=== PATIENT | female | born 1965 | race Caucasian/White ===

== ENCOUNTER 2017-11-02 22:01 | Emergency (ER) | payer OTHER ==
[2017-11-02 22:30] VITALS: O2SAT 96
--- NOTE | 2017-11-02 22:42 | ERPHSYRPT ---
- History of Present Illness Time Seen by Provider: 11/02/17 22:30 Source: patient Exam Limitations: no limitations Patient Subjective Stated Complaint: headache today.. states in the back of her head. denies injury. 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 denies injury.. states vomiting x 30 minutes.. has had a hx of headaches in the past. neuro intact. Physician History: AT 3 AM TODAY PT STARTED WITH A SEVERE LEFT SIDED OCCIPITAL HEADACHE WITH VOMITING X2 AND DIAPHORESIS. PT ALSO C/O A CHRONIC COUGH FROM COPD/CHRONIC BRONCHITIS. PT DENIES FEVER, CHEST PAIN, SHORTNESS OF AIR, ABDOMINAL PAIN. Allergies/Adverse Reactions: No Known Drug Allergies Allergy (Verified 11/02/17 23:10) Home Medications: Canagliflozin/Metformin HCl [Invokamet 150-1,000 mg Tablet] 1 each PO DAILY 12/19 [History] Cetirizine HCl [Zyrtec] 10 mg PO DAILY 11/02/17 [History] Escitalopram Oxalate [Lexapro] 20 mg PO DAILY 11/02/17 [History] Hydrochlorothiazide 25 mg PO DAILY 11/02/17 [History] Lisinopril 5 mg [Zestril 5 MG] 5 mg PO DAILY 11/02/17 [History] Hx Influenza Vaccination/Date Given: No Hx Pneumococcal Vaccination/Date Given: No Immunizations Up to Date: (unknown) - Review of Systems Constitutional: No Fever Respiratory: No Dyspnea Cardiac: No Chest Pain Abdominal/Gastrointestinal: Vomiting, No Abdominal Pain Neurological: Headache Endocrine: Excessive Sweating All Other Systems: Reviewed and Negative - Past Medical History Pertinent Past Medical History: Yes Neurological History: Migraines Cardiac History: Hypertension Respiratory History: COPD Endocrine Medical History: Diabetes Type II Musculoskeletal History: Other History: Other Other Medical History: TYPE II NIDDM X 6 MOS, PSORIASIS - Past Surgical History Past Surgical History: Yes Genitourinary: Other Female Surgical History: Hysterectomy, Other Other Surgical History: lithotripsy - Social History Smoking Status: Never smoker Exposure to second hand smoke: No Drug Use: none Patient Lives Alone: No - Female History Hx Now: No - Nursing Vital Signs Nursing Vital Signs: Initial Vital Signs Temperature 97.7 F 11/02/17 22:19 Pulse Rate 66 11/02/17 22:19 Respiratory Rate 20 01/02/18 22:19 Blood Pressure 128/68 11/02/17 22:19 O2 Sat by Pulse Oximetry 96 11/02/17 22:19 Pain Scale Pain Intensity 9 - Physical Exam General Appearance: alert Eye Exam: PERRL/EOMI Ears, Nose, Throat Exam: TMs normal, moist mucous membranes, pharyngeal erythema Neck Exam: normal inspection Respiratory Exam: No crackles/rales Cardiovascular Exam: normal heart sounds Gastrointestinal/Abdomen Exam: soft, normal bowel sounds Back Exam: normal range of motion Extremity Exam: normal range of motion Neurologic Exam: alert, cooperative, sensation nml, No motor deficits Skin Exam: warm, dry SpO2 Interpretation: normal SpO2: 96 Oxygen Delivery: Room Air - Course Nursing assessment & vital signs reviewed: Yes - CT Exams Head CT Interpretation: Tele-radiologist Report (NO GROSS OBVIOUS ACUTE INTRACRANIAL ABNORMALITY IN THE VISUALIZED NON-DEGRADED UPPER PORTIONS OF THE BRAIN PARENCHYMA.) Ordered Tests: Active Orders 24 hr Category Date Time Status HEAD WITHOUT CONTRAST [CT] Stat Exams 11/02/17 22:37 Taken AMYLASE Stat Lab 11/02/17 22:54 Completed CBC W DIFF Stat Lab 11/02/17 22:54 Completed CMP Stat Lab 11/02/17 22:54 Completed CULTURE, THROAT Stat Lab 11/02/17 22:54 Received CULTURE,URINE Stat Lab 11/02/17 22:54 Received LIPASE Stat Lab 11/02/17 22:54 Completed MAG [MAGNESIUM] Stat Lab 11/02/17 22:54 Completed [place] Screen Stat Lab 11/02/17 22:54 Completed STREP SCREEN-BETA A Stat Lab 11/02/17 22:54 Completed UA W/ MICROSCOPIC Stat Lab 11/02/17 22:54 Completed Lab/Rad Data: Laboratory Result Diagrams 11/02/17 22:54 11/02/17 22:54 Laboratory Results 11/02/17 11/02/17 11/02/17 Range/Units 22:54 22:54 22:54 WBC (4.0-10.5) K/mm3 RBC (4.1-5.4) M/mm3 Hgb (12.0-16.0) gm/dl Hct (35-47) % MCV (78-100) fl MCH (26-32) pg MCHC (32-36) g/dl RDW (11.5-14.0) % Plt Count (150-450) K/mm3 MPV (6-9.5) fl Gran % (36.0-66.0) % Lymphocytes % (24.0-44.0) % Monocytes % (0.0-12.0) % Eosinophils % (0.00-5.0) % Basophils % (0.0-0.4) % Basophils # (0-0.4) Sodium 140 (136-145) mEq/L Potassium 3.3 L (3.5-5.1) mEq/L Chloride 105 (98-107) mEq/L Carbon Dioxide 21.4 (21-32) mEq/L Anion Gap 16.5 H (5-15) MEQ/L BUN 15 (9-20) mg/dL Creatinine 0.86 (0.55-1.30) mg/dl Estimated GFR > 60 ML/MIN Glucose 156 H (70-110) MG/DL Calcium 8.9 (8.5-10.1) mg/dL Magnesium 1.7 L (1.8-2.4) mg/dL Total Bilirubin 0.20 (0.2-1.0) mg/dL AST 21 (15-37) U/L ALT 22 (12-78) U/L Alkaline Phosphatase 133 H (46-116) U/L Serum Total Protein 7.4 (6.4-8.2) gm/dL Albumin 3.2 L (3.4-5.0) g/dL Amylase 20 L (25-115) U/L Lipase 86 (73-393) U/L Ur Collection Type Urine Color (YELLOW) Urine Appearance (CLEAR) Urine pH (5-6) Ur Specific [place] (1.005-1.025) Urine Protein (Negative) Urine Ketones (NEGATIVE) Urine Blood (0-5) Geronimo/ul Urine Nitrite (NEGATIVE) Urine Bilirubin (NEGATIVE) Urine Urobilinogen (0-1) mg/dL Ur Leukocyte Esterase (NEGATIVE) Urine Microscopic RBC (0-2) /HPF Urine Microscopic WBC (0-5) /HPF Ur Epithelial Cells (FEW) /HPF Urine Bacteria (NEGATIVE) /HPF Urine Mucus (NEGATIVE) /HPF Urine Yeast (NEGATIVE) /HPF Urine Culture Reflexed (NO) Urine Glucose (NEGATIVE) mg/dL Monoscreen NEGATIVE (Negative) Influenza Type A Ag NEGATIVE (NEGATIVE) Influenza Type B Ag NEGATIVE (NEGATIVE) RSV (PCR) NEGATIVE (Negative) Streptococcus Screen (Negative) Specimen Received 11/02/17 11/02/17 11/02/17 Range/Units 22:54 22:54 22:54 WBC 14.5 H (4.0-10.5) K/mm3 RBC 5.61 H (4.1-5.4) M/mm3 Hgb 15.2 (12.0-16.0) gm/dl Hct 47.7 H (35-47) % MCV 85.0 (78-100) fl MCH 27.0 (26-32) pg MCHC 31.9 L (32-36) g/dl RDW 14.7 H (11.5-14.0) % Plt Count 373 (150-450) K/mm3 MPV 10.6 H (6-9.5) fl Gran % 70.2 H (36.0-66.0) % Lymphocytes % 15.7 L (24.0-44.0) % Monocytes % 8.7 (0.0-12.0) % Eosinophils % 5.0 (0.00-5.0) % Basophils % 0.4 (0.0-0.4) % Basophils # 0.06 (0-0.4) Sodium (136-145) mEq/L Potassium (3.5-5.1) mEq/L Chloride (98-107) mEq/L Carbon Dioxide (21-32) mEq/L Anion Gap (5-15) MEQ/L BUN (9-20) mg/dL Creatinine (0.55-1.30) mg/dl Estimated GFR ML/MIN Glucose (70-110) MG/DL Calcium (8.5-10.1) mg/dL Magnesium (1.8-2.4) mg/dL Total Bilirubin (0.2-1.0) mg/dL AST (15-37) U/L ALT (12-78) U/L Alkaline Phosphatase (46-116) U/L Serum Total Protein (6.4-8.2) gm/dL Albumin (3.4-5.0) g/dL Amylase (25-115) U/L Lipase (73-393) U/L Ur Collection Type VOID Urine Color YELLOW (YELLOW) Urine Appearance SLIGHTLY CLOUDY (CLEAR) Urine pH 0 (5-6) Ur Specific [place] 1.015 (1.005-1.025) Urine Protein 1000 (Negative) Urine Ketones NEGATIVE (NEGATIVE) Urine Blood 50 (0-5) Geronimo/ul Urine Nitrite NEGATIVE (NEGATIVE) Urine Bilirubin NEGATIVE (NEGATIVE) Urine Urobilinogen NORMAL (0-1) mg/dL Ur Leukocyte Esterase NEGATIVE (NEGATIVE) Urine Microscopic RBC 2-5 (0-2) /HPF Urine Microscopic WBC 0-2 (0-5) /HPF Ur Epithelial Cells MODERATE (FEW) /HPF Urine Bacteria MODERATE (NEGATIVE) /HPF Urine Mucus SLIGHT (NEGATIVE) /HPF Urine Yeast FEW (NEGATIVE) /HPF Urine Culture Reflexed YES (NO) Urine Glucose NEGATIVE (NEGATIVE) mg/dL Monoscreen (Negative) Influenza Type A Ag (NEGATIVE) Influenza Type B Ag (NEGATIVE) RSV (PCR) (Negative) Streptococcus Screen NEGATIVE (Negative) Specimen Received 11/02/17 2250 - Departure Time of Disposition: 00:08 Departure Disposition: Home Clinical Impression: HEADACHE, PHARYNGITIS, VOMITING Condition: Stable Critical Care Time: No Referrals: ILYA ERWIN [Primary Care Provider] - Instructions: Headache Additional Instructions: FOLLOW UP WITH PRIVATE DOCTOR TOMORROW. Prescriptions: Promethazine HCl 25 mg [Phenergan 25 mg] 25 mg PO Q4H PRN PRN #14 tablet PRN Reason: Nausea/Vomiting Azithromycin 250 mg [Zithromax 250 MG TABLET] 250 mg PO ZPACK #6 tablet
[2017-11-02 23:04] LABS: BASOPHIL % 0.4 % (0.0-0.4); Basophil (Absolute #) 0.06 (0-0.4); Eosinophil (Absolute #) 0.72 (0-0.5); Granulocyte Absolute (ANC) 10.16 (1.4-6.9); Granulocytes % 70.2 % (36.0-66.0); Hematocrit 47.7 % (35-47); Hemoglobin 15.2 gm/dl (12.0-16.0); Lymphocyte (Absolute #) 2.27 (1.0-4.6); Lymphocytes % 15.7 % (24.0-44.0); Mean Corpuscular Hgb Concent. 31.9 g/dl (32-36); Mean Platelet Volume 10.6 fl (6-9.5); Monocyte (Absolute #) 1.26 (0.0-1.3); Monocytes % 8.7 % (0.0-12.0); Platelet Count 373 K/mm3 (150-450); Red Blood Count 5.61 M/mm3 (4.1-5.4); Red Cell Distribution Width 14.7 % (11.5-14.0); White Blood Count 14.5 K/mm3 (4.0-10.5)
[2017-11-02 23:19] LABS: Appearance SLIGHTLY CLOUDY (CLEAR); Bilirubin NEGATIVE (NEGATIVE); Blood 50 Ery/ul (0-5); Glucose NEGATIVE (NEGATIVE); Ketones NEGATIVE (NEGATIVE); Leukocyte Esterase NEGATIVE (NEGATIVE); Nitrite NEGATIVE (NEGATIVE); Ph 0 (5-6); Protein,Urine Dip 1000 (Negative); Specific Gravity 1.015 (1.005-1.025); Urobilinogen NORMAL mg/dL (0-1)
[2017-11-02 23:20] LABS: Bacteria MODERATE /HPF (NEGATIVE); Epithelial Cells MODERATE /HPF (FEW); Mucus SLIGHT /HPF (NEGATIVE); WBC 0-2 /HPF (0-5); Yeast FEW /HPF (NEGATIVE)
[2017-11-02 23:21] LABS: ALBUMIN 3.2 g/dL (3.4-5.0); ALKALINE PHOSPHATASE 133 U/L (46-116); AMYLASE 20 U/L (25-115); ANION GAP 16.5 MEQ/L (5-15); BLOOD UREA NITROGEN 15 mg/dL (9-20); CHLORIDE 105 mEq/L (98-107); Calcium 8.9 mg/dL (8.5-10.1); Carbon Dioxide 21.4 mEq/L (21-32); Creatinine 1 0.86 mg/dl (0.55-1.30); EST GLOMERULAR FILTRATION RATE > 60 ML/MIN; Glucose 156 MG/DL (70-110); LIPASE 86 U/L (73-393); MAGNESIUM 1.7 mg/dL (1.8-2.4); Potassium 3.3 mEq/L (3.5-5.1); SGOT/AST 21 U/L (15-37); SGPT/ALT 22 U/L (12-78); SODIUM 140 mEq/L (136-145); Total Protein 7.4 gm/dL (6.4-8.2)
[2017-11-03] MEDS ORDERED: Klor Con 10 MEQ PO ONE ×3 (00:01→00:15)
[2017-11-03 00:02] LABS: INFLUENZA A NEGATIVE (NEGATIVE); INFLUENZA B NEGATIVE (NEGATIVE); RESPIRATORY SYNCTIAL VIRUS NEGATIVE (Negative)
[2017-11-03] MEDS ORDERED: Rocephin 1000 MG INJ IM ONE (00:03)
[2017-11-03] MEDS ORDERED: TORAdol 30 mg Injection IM ONE (00:03)
[2017-11-03] MEDS ORDERED: TORAdol 30 mg Injection ONE (00:08)
[2017-11-03] MEDS ORDERED: Rocephin 1000 MG INJ ONE (00:08)
[2017-11-03] MEDS ORDERED: MAG-OX 400 ONE (00:08)
[2017-11-03 00:38] VITALS: BP 120/69; PULSE 68
--- NOTE | 2017-11-03 08:36 | XRAY ---
Indication: Left occipital headache. No known injury. Multiple contiguous axial images obtained through the head without contrast. Comparison: May 30, 2007. Again normal appearing brain parenchyma, ventricles, and bony calvarium. Visualized paranasal sinuses and mastoid air cells are clear. Impression: Stable normal CT head without contrast exam. Comment: Preliminary interpretation was made by [facility]. No critical discrepancy. CT DI 67.22
[2017-11-03] MEDS ORDERED: MAG-OX 400 PO SCH (10:00)
== END 2017-11-03 00:44 | disposition home or self-care (01) ==
LOC: ED 22:01
DX: R51 Headache (principal); J02.9 Acute pharyngitis, unspecified; R11.11 Vomiting without nausea; I10 Essential (primary) hypertension; J44.9 Chronic obstructive pulmonary disease, unspecified; E11.9 Type 2 diabetes mellitus without complications; Z79.4 Long term (current) use of insulin; L40.9 Psoriasis, unspecified; Z79.899 Other long term (current) drug therapy
CPT/HCPCS: 36415; 70450; 80053; 81000; 82150; 82962; 83690; 83735; 85025; 86308; 87070; 87086; 87430; 87631; 99284; J0696; J1885; A9270-GY

== ENCOUNTER 2018-04-10 13:57 | Emergency (ER) | payer SELFPAY ==
--- NOTE | 2018-04-10 14:30 | ERPHSYRPT ---
- History of Present Illness Time Seen by Provider: 04/10/18 14:27 Source: patient Exam Limitations: no limitations Patient Subjective Stated Complaint: pain to left hip beginning today. denies any injury. Triage Nursing Assessment: to room per w/c. assisted to bed per staff. is able to bear weight using a walker. walked around end of cot with walker. no deformities noted. Physician History: pain to left hip beginning today. denies any injury. Method of Injury: unknown Occurred: this morning Quality: constant Severity of Pain-Max: moderate Severity of Pain-Current: moderate Lower Extremities Pain: hip: left Allergies/Adverse Reactions: No Known Drug Allergies Allergy (Verified 04/10/18 14:06) Home Medications: Canagliflozin/Metformin HCl [Invokamet 150-1,000 mg Tablet] 1 each PO DAILY 12/19 [History] Cetirizine HCl [Zyrtec] 10 mg PO DAILY 11/02/17 [History] Escitalopram Oxalate [Lexapro] 20 mg PO DAILY 11/02/17 [History] Lisinopril 5 mg [Zestril 5 MG] 5 mg PO DAILY 11/02/17 [History] hydroCHLOROthiazide [Hydrochlorothiazide] 25 mg PO DAILY 11/02/17 [History] Cephalexin Mh 500 mg [Keflex 500 mg] 500 mg PO QID 04/10/18 [History] Hx Tetanus, Diphtheria Vaccination/Date Given: No Hx Influenza Vaccination/Date Given: Yes Hx Pneumococcal Vaccination/Date Given: No - Review of Systems Constitutional: No Symptoms Eyes: No Symptoms Ears, Nose, & Throat: No Symptoms Respiratory: No Symptoms Cardiac: No Symptoms Abdominal/Gastrointestinal: No Symptoms Genitourinary Symptoms: No Symptoms Musculoskeletal: Joint Pain (left hip), No Deformity, No Fall Neurological: No Symptoms Psychological: No Symptoms Endocrine: No Symptoms - Past Medical History Pertinent Past Medical History: Yes Neurological History: Migraines Cardiac History: Hypertension Respiratory History: COPD Endocrine Medical History: Diabetes Type II Musculoskeletal History: Other History: Other Other Medical History: TYPE II NIDDM X 6 MOS, PSORIASIS - Past Surgical History Past Surgical History: Yes Genitourinary: Other Female Surgical History: Hysterectomy, Dilation & Curettage, Tubal Ligation Other Surgical History: kidney stones with stent placement - Social History Smoking Status: Never smoker Exposure to second hand smoke: No Drug Use: none Patient Lives Alone: No - Female History Hx Now: No - Nursing Vital Signs Nursing Vital Signs: Initial Vital Signs Respiratory Rate 16 04/10/18 14:00 Pain Scale Pain Intensity 3 - Physical Exam General Appearance: no apparent distress Eyes, Ears, Nose, Throat Exam: normal ENT inspection Neck Exam: normal inspection Cardiovascular/Respiratory Exam: chest non-tender Gastrointestinal/Abdominal Exam: non-tender Back Exam: decreased range of motion, muscle spasm Hips Exam: left: limited range of motion, soft tissue tenderness Legs Exam: bilateral leg: non-tender Knees Exam: bilateral knee: non-tender Ankle Exam: bilateral ankle: non-tender Foot Exam: bilateral foot: non-tender DTR - Lower Extremities Exam: knee (R): 3+, knee (L): 3+, ankle (R): 3+, ankle ( L): 3+ Neuro/Tendon Exam: normal sensation Mental Status Exam: alert, oriented x 3 Skin Exam: normal color SpO2 Interpretation: normal Oxygen Delivery: Room Air - Course Nursing assessment & vital signs reviewed: Yes - Radiology Exams Hip X-ray Interpretation: Reviewed by me Ordered Tests: Active Orders 24 hr Category Date Time Status HIP UNI (2V) INCL PEL IF DONE Stat Exams 04/10/18 14:27 Taken Medication Summary Discontinued Medications Generic Name Dose Route Start Last Admin Trade Name Bar PRN Reason Stop Dose Admin Ketorolac Tromethamine 60 mg 04/10/18 15:03 04/10/18 15:06 Toradol 30 Mg Injection IM 04/10/18 15:04 60 mg STAT ONE Administration Ketorolac Tromethamine Confirm 04/10/18 15:05 Toradol 30 Mg Injection Administered 04/10/18 15:06 Dose 60 mg .ROUTE .STK-MED ONE - Progress Progress: improved, pain not gone completely Counseled pt/family regarding: diagnosis, need for follow-up, rad results - Departure Time of Disposition: 15:19 Departure Disposition: Home Clinical Impression: Hip pain, left Condition: Stable Critical Care Time: No Referrals: ILYA ERWIN [Primary Care Provider] - Instructions: Contusion (DC) Additional Instructions: SPRAINS/STRAINS/CONTUSIONS 1. Rest the affected area as much as possible for the next few days. 2. Apply ice to the affected area for 20-30 minutes at a time, several times a day. 3. If you receive an elastic wrap, wear it only while awake for comfort and support. Re-wrap the elastic wrap if it feels too tight or too loose. 4. If swelling is present, elevate the affected part above the level of the heart for at least 2 to 3 days. 5. Use splints, slings, or crutches as instructed. 6. Watch for severe swelling, coldness, numbness, and discoloration of the fingers and toes. See your family physician or return to the emergency department if any of these are noted. AMANDAJAGRUTI LOUIS was seen on 04/10/18 n the Emergency Room. At that time you were treated for an emergent condition, during your visit Laboratory, Radiology and/or other procedures may have been ordered. It is very important that you follow-up with your Primary Care Physician ILYA ERWIN within the next 24-48 hours to review your Emergency Room visit and the final results of testing that was ordered. Some test results such as Urine Cultures, Blood Cultures, and other cultures if ordered will not be finalized for 24-48 hours. If you do not have a Primary Care Provider please call the medical records department at [phone] to obtain a copy of your results or you may sign into our patient portal to obtain these results by visiting us @ [email or web address] and completing the following steps: 1. Click on the Patient Portal link 2. Click the Patient Self Enrollment Link to complete the enrollment form and entering your 3. Once the enrollment form is completed you will receive an email with a temporary ID and password at the email address you provided. 4. Next choose a user name and password. Your user name must be at least 4 characters long and your password must be at least 4 characters long. 5. Choose a security question from the list and provide your answer to the question. If you already have signed into the Health Portal you may access your Health Care Information 24/05 by the following steps: 1. Login to our website @ [email or web address] 2. Enter your original user name and password. FAQS The [facility] Health Portal is an online tool that contains your Lab Results, Radiology Reports, Visit History, Discharge Instructions and Health Summary Lab and Radiology Results will not be available for 72 hours on the portal. The Portal is a secure site, passwords are encryted and URLs are re-written so they cannot be copied and pasted. You and authorized family members are the only ones who can access your Portal. Also there is a timeout feature that protects your information if you leave the Portal page open. If you have technical difficulty please use the Contact Us link on the page this will allow you to submit any questions you have regarding the Portal or you may contact the Medical Record Department at [phone]. Prescriptions: Naproxen 500 mg [Naprosyn 500 MG] 500 mg PO BIDAC #30 tablet Orphenadrine Citrate 100 mg [Norflex 100 MG Tablet] 100 mg PO BID #20 tab
[2018-04-10] MEDS ORDERED: TORAdol 30 mg Injection IM ONE (15:03)
[2018-04-10] MEDS ORDERED: TORAdol 30 mg Injection ONE (15:05)
[2018-04-10 15:13] VITALS: BP 128/86; PULSE 92; O2SAT 97
--- NOTE | 2018-04-10 17:09 | XRAY ---
Indication: Left hip pain. No known injury. Comparison: None AP pelvis and 2 views of the left hip demonstrates moderate bilateral lumbosacral junction degenerative facet arthropathy and last lumbar segment spina bifida defect versus laminectomy. No other bony, articular, or soft tissue abnormalities. Comment: Preliminary interpretation was made by [facility]. No discrepancy.
== END 2018-04-10 15:45 | disposition home or self-care (01) ==
LOC: ED 13:57
DX: M25.552 Pain in left hip (principal); Z79.899 Other long term (current) drug therapy
CPT/HCPCS: 73502; 96372; 99284; J1885

== ENCOUNTER 2018-11-07 08:32 | Emergency (ER) | payer BC ==
--- NOTE | 2018-11-07 09:10 | ERPHSYRPT ---
- History of Present Illness Time Seen by Provider: 11/07/18 08:57 Source: patient Exam Limitations: no limitations Patient Subjective Stated Complaint: Pt states "I have pneumonia. It all started on 10/21/2018. I went to [facility] and they gave me augmentin, and it did not touch it. I went to [facility] this morning and they sent me straight over here." Triage Nursing Assessment: Pt alert and oriented X 3, skin pwd. Pt ambulates slowly with breaks. Pt tachypneic. Pt able to speak in clear full sentences. pt has +2 pitting edema noted bilat lower legs. Pt has rhonchi noted lower right lung field and wheezes noted on upper left lungs. Physician History: The patient is a 53-year-old female with her daughter complaining that she was developing shortness of breath on 10/21/18. She saw Madelin [facility] at [facility] on 10/23/18 and was given Augmentin. The Augmentin has not helped. On 11/03/18 she had a chest x-ray and was told she had pneumonia. She was given lasix 20 mg daily for 5 days for swelling. She has also been taking Lasix for a 19 pound weightweight gain. She has now been urinating frequently and has lost some weight. She has shortness of breath and cannot sleep lying flat in bed. She says she is unable to sleep even in a recliner. She must sit in a chair straight up in order to breathe at night. She has a cough and wheezing. She denies fever or chills. She was seen at [facility] this morning and was sent to ER. Her past medical history is significant for psoriasis, DPM, HTN, CHF, kidney stones, tubal ligation, and hysterectomy. Timing/Duration: week(s) (3), gradual onset, worse Activities at Onset: none Severity of Dyspnea-Max: moderate Severity of Dyspnea-Current: moderate Possible Cause: no prior episodes Modifying Factors: Improves With: coughing, exertion, lying down Associated Symptoms: anxiety, cough, edema, wheezing Allergies/Adverse Reactions: No Known Drug Allergies Allergy (Verified 04/10/18 14:06) Home Medications: hydroCHLOROthiazide [Hydrochlorothiazide] 25 mg PO DAILY 11/02/17 [History] Benzonatate 100 mg [Tessalon Perles 100 MG] 100 mg PO DAILY 11/07/18 [ History] Furosemide 20 mg [Lasix 20 mg] 20 mg PO DAILY 11/07/18 [History] Metformin HCl Xr 500 mg [Glucophage XR 500 MG] 1,000 mg PO DAILY 11/07/18 [History] Methotrexate Sodium 2.5 mg [Trexall 2.5 mg] 15 mg PO DAILY 11/07/18 [ History] Potassium Chloride [Klor-Con M20] 20 meq PO DAILY 11/07/18 [History] Tizanidine HCl 4 mg PO HS 11/07/18 [History] Hx Tetanus, Diphtheria Vaccination/Date Given: No Hx Influenza Vaccination/Date Given: Yes Hx Pneumococcal Vaccination/Date Given: No Immunizations Up to Date: Yes - Review of Systems Constitutional: No Fever, No Chills Eyes: No Symptoms Ears, Nose, & Throat: No Symptoms Respiratory: Cough, Dyspnea, Dyspnea on Exertion (ROBIN), Wheezing Cardiac: Edema Abdominal/Gastrointestinal: No Abdominal Pain, No Nausea, No Vomiting, No Diarrhea Genitourinary Symptoms: No Dysuria Musculoskeletal: No Back Pain, No Neck Pain Skin: No Rash Neurological: No Dizziness, No Focal Weakness, No Sensory Changes Psychological: No Symptoms Endocrine: No Symptoms Hematologic/Lymphatic: No Symptoms Immunological/Allergic: No Symptoms All Other Systems: Reviewed and Negative - Past Medical History Pertinent Past Medical History: Yes Neurological History: Migraines Cardiac History: Hypertension Respiratory History: COPD Endocrine Medical History: Diabetes Type II Musculoskeletal History: Other History: Other Other Medical History: TYPE II NIDDM X 6 MOS, PSORIASIS - Past Surgical History Past Surgical History: Yes Genitourinary: Other Female Surgical History: Hysterectomy, Dilation & Curettage, Tubal Ligation Other Surgical History: kidney stones with stent placement - Social History Smoking Status: Former smoker Exposure to second hand smoke: No Drug Use: none Patient Lives Alone: No - Female History Hx Last Menstrual Period: hysterectomy Hx Now: No - Nursing Vital Signs Nursing Vital Signs: Initial Vital Signs Temperature 99.2 F 11/07/18 08:32 Pulse Rate 108 H 11/07/18 08:32 Respiratory Rate 28 H 11/07/18 08:32 Blood Pressure 147/85 11/07/18 08:32 O2 Sat by Pulse Oximetry 91 L 11/07/18 08:32 Pain Scale Pain Intensity 7 - Physical Exam General Appearance: moderate distress, obese Eye Exam: PERRL/EOMI Ears, Nose, Throat Exam: hearing grossly normal, normal ENT inspection Neck Exam: normal inspection, supple Respiratory Exam: rhonchi, wheezing Cardiovascular/Chest Exam: normal heart sounds, tachycardia Abdominal/Gastrointestinal Exam: soft, No tenderness, No distention, No mass Rectal Exam: not done Extremity Exam: non-tender, normal range of motion, normal inspection, no calf tenderness, pedal edema Neurologic Exam: alert, oriented x 3, cooperative, forestry biology specialist II-XII nml as tested, sensation nml, No motor deficits Skin Exam: normal color, warm, No dry SpO2 Interpretation: normal SpO2: 94 Oxygen Delivery: Room Air - Course EKG Interpreted by Me: RATE, Sinus Rhythm, NORMAL AXIS, NORMAL INTERVALS, NORMAL QRS, NORMAL ST-T, Other (no comp) - Radiology Exams Chest X-ray Interpretation: Reviewed by me, Teleradiologist Report (per Dr Lagunas), Infiltrates, Other (unchanged chest with cardiomegaly, left mid to lower lung infiltrate/atelecstasis.) - CT Exams Chest CT Interpretation: Tele-radiologist Report (per Dr Lagunas), No PE, Other (No central PE; cardiomegaly with very large pericardial effusion; small bibasilar effusionn; prominent mediastinal, left hilar, paraesophgeal, and bilateral axillary edenopathy; rule out primary versus metastatic malignancy.) Ordered Tests: Active Orders 24 hr Category Date Time Status Senior Property Manager STAT Care 11/07/18 09:15 Active EKG-ER Only STAT Care 11/07/18 09:14 Active IV Insertion STAT Care 11/07/18 09:14 Active Oxygen-ED Only NASAL CANNULA 2 lpm Care 11/07/18 09:14 Active CHEST 2 VIEWS (PA AND LAT) Stat Exams 11/07/18 09:15 Completed CHEST WITH CONTRAST [CT] Stat Exams 11/07/18 10:27 Completed ARTERIAL BLOOD GASES Stat Lab 11/07/18 09:47 Completed BLOOD CULTURE Stat Lab 11/07/18 09:30 Received CBC W DIFF Stat Lab 11/07/18 09:14 Completed CMP Stat Lab 11/07/18 09:30 Completed D-DIMER QUANTITATION Stat Lab 11/07/18 09:14 Completed Lactic Acid Stat Lab 11/07/18 09:47 Completed Manual Differential NC Stat Lab 11/07/18 09:14 Completed NT PRO BNP Stat Lab 11/07/18 09:30 Completed TROPONIN Q3H Lab 11/07/18 09:58 Completed TROPONIN Q3H Lab 11/07/18 12:14 Received TROPONIN Q3H Lab 11/07/18 15:15 Ordered TROPONIN Q3H Lab 11/07/18 18:15 Ordered TROPONIN Q3H Lab 11/07/18 21:15 Ordered Peak Expiratory Flow Rate ONCE RT 11/07/18 09:30 Completed Respiratory Nebulizer STAT RT 11/07/18 09:16 Completed Respiratory Therapy Assessment DAILY RT 11/07/18 09:30 Completed Medication Summary Discontinued Medications Generic Name Dose Route Start Last Admin Trade Name Freq PRN Reason Stop Dose Admin Albuterol/Ipratropium 3 ml 11/07/18 09:14 11/07/18 09:50 Duoneb 0.5-3 Mg/3 Ml Neb IH 11/07/18 09:15 3 ml STAT ONE Administration Albuterol/Ipratropium Confirm 11/07/18 09:26 Duoneb 0.5-3 Mg/3 Ml Neb Administered 11/07/18 09:27 Dose 3 ml IH .STK-MED ONE Lab/Rad Data: Laboratory Result Diagrams 11/07/18 09:14 11/07/18 09:30 Laboratory Results 11/07/18 11/07/18 11/07/18 Range/Units 09:58 09:58 09:47 WBC (4.0-10.5) K/mm3 RBC (4.1-5.4) M/mm3 Hgb (12.0-16.0) gm/dl Hct (35-47) % MCV (78-100) fl MCH (26-32) pg MCHC (32-36) g/dl RDW (11.5-14.0) % Plt Count (150-450) K/mm3 MPV (6-9.5) fl Segmented Neutrophils (36.0-66.0) % Band Neutrophils (0.0-2.0) % Lymphocytes (Manual) (24-44) % Monocytes (Manual) (0.0-12.0) % Eosinophils (Manual) (0.00-3.0) % Basophils (Manual) (0.0-1.0) % Toxic Granulation Platelet Estimate (NORMAL) RBC Morphology Anisocytosis D-Dimer (215-500) ng/mL Puncture Site RIGHT BRACHIAL pCO2 37 (35-45) mmHg pO2 83 (75-100) mmHg Base Excess 5.5 H (-2.0-2.0) O2 Saturation 93.8 L (94-100) g/dF ABG pH 7.50 H (7.35-7.45) ABG HCO3 28.9 H (22-28) ABG O2 Sat (Measured) 97.9 (95-100) % Hussein Test NOT APPLICABLE A-a Gradient 127 a/A Ratio 0.40 Hemoglobin 12.1 Carboxyhemoglobin 2.5 (0.0-6.9) % THgb Methemoglobin 1.7 H (1.4-1.5) % Temperature 37.0 C POC O2 Flow Rate 36 % Sodium (137-145) mmol/L Potassium 3.8 (3.5-5.1) mmol/L Chloride (98-107) mmol/L Carbon Dioxide (22-30) mmol/L Anion Gap (5-15) MEQ/L BUN (7-17) mg/dL Creatinine (0.52-1.04) mg/dL Estimated GFR ML/MIN Glucose (74-106) mg/dL Lactic Acid 0.7 (0.4-2.0) Calcium (8.4-10.2) mg/dL Total Bilirubin (0.2-1.3) mg/dL AST (14-36) U/L ALT (0-35) U/L Alkaline Phosphatase (38-126) U/L Troponin I < 0.012 (0.000-0.034) ng/mL NT-Pro-B Natriuret Pep (0-900) pg/mL Serum Total Protein (6.3-8.2) g/dL Albumin (3.5-5.0) g/dL Influenza Type A Ag NEGATIVE (NEGATIVE) Influenza Type B Ag NEGATIVE (NEGATIVE) RSV (PCR) NEGATIVE (Negative) 11/07/18 11/07/18 11/07/18 Range/Units 09:30 09:14 09:14 WBC 18.3 H (4.0-10.5) K/mm3 RBC 4.10 (4.1-5.4) M/mm3 Hgb 11.8 L (12.0-16.0) gm/dl Hct 37.1 (35-47) % MCV 90.5 (78-100) fl MCH 28.7 (26-32) pg MCHC 31.8 L (32-36) g/dl RDW 14.9 H (11.5-14.0) % Plt Count 595 H (150-450) K/mm3 MPV 10.2 H (6-9.5) fl Segmented Neutrophils 76 H (36.0-66.0) % Band Neutrophils 1 (0.0-2.0) % Lymphocytes (Manual) 16 L (24-44) % Monocytes (Manual) 5 (0.0-12.0) % Eosinophils (Manual) 1 (0.00-3.0) % Basophils (Manual) 1 (0.0-1.0) % Toxic Granulation 1+ Platelet Estimate INCREASED (NORMAL) RBC Morphology ABNORMAL Anisocytosis 1+ D-Dimer 4520 H* (215-500) ng/mL Puncture Site pCO2 (35-45) mmHg pO2 (75-100) mmHg Base Excess (-2.0-2.0) O2 Saturation (94-100) g/dF ABG pH (7.35-7.45) ABG HCO3 (22-28) ABG O2 Sat (Measured) (95-100) % Hussein Test A-a Gradient a/A Ratio Hemoglobin Carboxyhemoglobin (0.0-6.9) % THgb Methemoglobin (1.4-1.5) % Temperature C POC O2 Flow Rate % Sodium 138 (137-145) mmol/L Potassium 3.6 (3.5-5.1) mmol/L Chloride 100 (98-107) mmol/L Carbon Dioxide 31 H (22-30) mmol/L Anion Gap 11.7 (5-15) MEQ/L BUN 12 (7-17) mg/dL Creatinine 0.61 (0.52-1.04) mg/dL Estimated GFR > 60.0 ML/MIN Glucose 160 H (74-106) mg/dL Lactic Acid (0.4-2.0) Calcium 8.6 (8.4-10.2) mg/dL Total Bilirubin 0.60 (0.2-1.3) mg/dL AST 19 (14-36) U/L ALT 30 (0-35) U/L Alkaline Phosphatase 126 (38-126) U/L Troponin I (0.000-0.034) ng/mL NT-Pro-B Natriuret Pep 423 (0-900) pg/mL Serum Total Protein 7.1 (6.3-8.2) g/dL Albumin 3.6 (3.5-5.0) g/dL Influenza Type A Ag (NEGATIVE) Influenza Type B Ag (NEGATIVE) RSV (PCR) (Negative) - Progress Progress: unchanged Air Movement: good Progress Note: 11/07/18 12:41 I discussed the patient care and findings with Dr. Cueva. We discussed the possibility that she has metastatic cancer in the chest. We discussed the very large pericardial effusion. Dr. Cueva recommended she be transferred to [facility]. I discussed with the patient the findings. I told her she does not have pneumonia. I told her she does not have a PE. I did say that she has a very large pericardial effusion and we do not know the exact cause of it. I told her that we need to send her to [facility] for evaluation of the elevated d-dimer and of the large pericardial effusion. I did not discuss with the patient the possibility of cancer. 11/07/18 12:50 I discussed the patient in the findings from the CT scan with Dr. Finley at [facility]. He accepts the patient. He says that they have residential counselor and cardial thoracic surgery there today. Blood Culture(s) Obtained: No Antibiotics given: No Discussed with : Hammad Counseled pt/family regarding: diagnosis, rad results - Departure Time of Disposition: 12:51 Departure Disposition: Transfer (transfer to [facility] ER per DR Finley) Clinical Impression: Dyspnea, Pericardial effusion, Elevated d-dimer, Cardiomegaly, Adenopathy Condition: Stable Critical Care Time: No Referrals: ILYA ERWIN [ACTIVE STAFF] -
[2018-11-07] MEDS ORDERED: DUONEB 0.5-3 MG/3 ml Neb IH ONE ×2 (09:14→09:26)
--- NOTE | 2018-11-07 09:43 | XRAY ---
Indication: Short of breath. Comparison: November 03, 2018. PA/lateral chest unchanged again demonstrating cardiomegaly, left mid to lower lung infiltrate/atelectasis, and small bibasilar effusions. No new cardiopulmonary abnormalities.
[2018-11-07 09:52] LABS: A-aADO2 127; ABG HEMOGLOBIN 12.1; ABG POTASSIUM 3.8 (3.5-5.1); ARTERIAL BLD GAS O2 SATURATION 97.9 % (95-100); ARTERIAL BLOOD GAS BASE EXCESS 5.5 (-2.0-2.0); ARTERIAL BLOOD GAS FIO2 36 %; ARTERIAL BLOOD GAS PCO2 37 mmHg (35-45); ARTERIAL BLOOD GAS PO2 83 mmHg (75-100); CARBOXYHEMOGLOBIN 2.5 % THgb (0.0-6.9); HCO3- 28.9 (22-28); HGB O2 SAT 93.8 g/dF (94-100); Lactic Acid 0.7 (0.4-2.0); Methhemoglobin 1.7 % (1.4-1.5)
[2018-11-07 09:53] LABS: ABG SITE RIGHT BRACHIAL
[2018-11-07 09:54] LABS: Hematocrit 37.1 % (35-47); Hemoglobin 11.8 gm/dl (12.0-16.0); Mean Cell Volume 90.5 fl (78-100); Mean Corpuscular Hemoglobin 28.7 pg (26-32); Mean Corpuscular Hgb Concent. 31.8 g/dl (32-36); Mean Platelet Volume 10.2 fl (6-9.5); Platelet Count 595 K/mm3 (150-450); Red Cell Distribution Width 14.9 % (11.5-14.0); White Blood Count 18.3 K/mm3 (4.0-10.5)
[2018-11-07 10:14] LABS: ANISOCYTOSIS 1+; BAND 1 % (0.0-2.0); Basophil 1 % (0.0-1.0); Eosinophil 1 % (0.00-3.0); Lymphocytes 16 % (24-44); Monocyte 5 % (0.0-12.0); Neutrophils 76 % (36.0-66.0); Platelet Estimate INCREASED (NORMAL); Total Cells Counted 100; Toxic Granulation 1+
[2018-11-07 10:15] LABS: ALBUMIN 3.6 g/dL (3.5-5.0); ALKALINE PHOSPHATASE 126 U/L (38-126); ANION GAP 11.7 MEQ/L (5-15); BLOOD UREA NITROGEN 12 mg/dL (7-17); CHLORIDE 100 mmol/L (98-107); Calcium 8.6 mg/dL (8.4-10.2); Carbon Dioxide 31 mmol/L (22-30); Creatinine 1 0.61 mg/dL (0.52-1.04); Glucose 160 mg/dL (74-106); NT PRO BNP 423 pg/mL (0-900); Potassium 3.6 mmol/L (3.5-5.1); SGOT/AST 19 U/L (14-36); SGPT/ALT 30 U/L (0-35); SODIUM 138 mmol/L (137-145); Total Protein 7.1 g/dL (6.3-8.2)
[2018-11-07 10:45] LABS: INFLUENZA A NEGATIVE (NEGATIVE); INFLUENZA B NEGATIVE (NEGATIVE); RESPIRATORY SYNCTIAL VIRUS NEGATIVE (Negative)
--- NOTE | 2018-11-07 11:47 | XRAY ---
Indication: Chest pain, short of breath, and elevated d-dimer. Multiple contiguous axial images obtained through the chest using 100 cc Isovue 370 contrast and PE protocol. Comparison: None There is satisfactory opacification of the pulmonary arteries. However mild respiration artifact especially near the lung bases limits evaluation of the more distal lobar and segmental branches. No central pulmonary embolus. There is marked cardiomegaly with very large pericardial effusion. Aorta is normal in course and caliber without aneurysm/dissection. Several prominent mediastinal lymph nodes, largest in the superior mediastinum left paratracheal measuring 2.7 x 3.8 cm. 1.2 x 2.7 cm left suprahilar adenopathy. There is a distal paraesophageal node measuring 1.6 x 1.9 cm. Also a few prominent bilateral axillary lymph nodes, largest on the left measuring 1.3 x 2.6 cm. Examination of the lung parenchyma demonstrates lingular subsegmental atelectasis/scarring, bibasilar atelectasis/scarring, and small bilateral effusions. Bony thorax intact with minimal degenerative changes throughout the spine. Limited upper abdomen demonstrates diffuse fatty liver. Impression: 1. Pulmonary embolus evaluation limited by respiration artifact. No large central pulmonary embolus. 2. Cardiomegaly with very large pericardial effusion. Also small bibasilar effusions concerning for cardiac decompensation. 3. Prominent mediastinal, left hilar, paraesophageal and bilateral axillary adenopathy. Rule out primary versus metastatic malignancy. 4. Incidental lingula and bibasilar atelectasis/scarring and also fatty liver. CT DI 28.13
[2018-11-07 12:56] VITALS: BP 142/81; PULSE 112; O2SAT 96
== END 2018-11-07 13:41 | disposition short-term general hospital (02) ==
LOC: ED 08:32 → SUPCPDRO 08:32 → ED 13:41
DX: R06.00 Dyspnea, unspecified (principal); I31.3 Pericardial effusion (noninflammatory); R79.1 Abnormal coagulation profile; I51.7 Cardiomegaly; R59.9 Enlarged lymph nodes, unspecified; I10 Essential (primary) hypertension; E11.9 Type 2 diabetes mellitus without complications; Z79.84 Long term (current) use of oral hypoglycemic drugs; Z79.899 Other long term (current) drug therapy
CPT/HCPCS: 36000; 36415; 36600; 71046; 71260; 80053; 82375; 82803; 83605; 83880; 84484; 85025; 85379; 87040; 87631; 93005; 93041; 94150; 94640; 99285; A9270-GY

== ENCOUNTER 2021-01-03 06:59 | Emergency (ER) | payer MEDICAID ==
[2021-01-03] MEDS ORDERED: solu-MEDROL 125 MG IV ONE (07:28)
[2021-01-03] MEDS ORDERED: Pepcid 20 MG VIAL IV ONE ×2 (07:28→07:39)
[2021-01-03] MEDS ORDERED: BENADRYL 50 MG/ML IM ONE (07:29)
[2021-01-03] MEDS ORDERED: Singulair 10 MG PO STA (07:30)
[2021-01-03] MEDS ORDERED: solu-MEDROL 125 MG ONE (07:39)
[2021-01-03] MEDS ORDERED: BENADRYL 50 MG/ML ONE (07:39)
--- NOTE | 2021-01-03 07:43 | ERPHSYRPT ---
- History of Present Illness Time Seen by Provider: 01/03/21 07:15 Source: patient Exam Limitations: no limitations Patient Subjective Stated Complaint: Pt has psoriasis and went to the doctor and was given and injection of Cimzia in December and had an excacerbation of her psoriasis, pt used a new laundry detergent earlier in the week causing hives to her chest, neck, arms approx 5 days ago, went back to the agricultural technical officer on Wednesday and got a steroid shot for the psoriasis and it didn't do anything for the hives, pt took 3 benadryl last night and continues to itch severely Triage Nursing Assessment: Pt presents with psoriasis to violet hands that are inflamed and peeling, hives to chest, face, neck and arms, vitals wnl, rates hand pain as 7/10, pt itching arms, pt is on oxygen at home Physician History: Patient is a 55-year-old female who has psoriasis migraine COPD hypertension and some diabetes. Her diabetes is type II. She presents with an exacerbation of her psoriasis which started in December after her superintendent maintenance airports gave her 2 doses of Cimzia. 5 days ago she changed laundry detergents and has broken out in hives she saw a superintendent maintenance airports and was given a steroid shot but still continues to complain of itching and hives. Timing/Duration: day(s) (5) Quality: burning, itchy, painful Severity: severe Location: generalized Possible Causes: exposure to allergen, soaps Associated Symptoms: hives, rash Allergies/Adverse Reactions: Penicillins Allergy (Verified 01/03/21 07:22) Home Medications: Furosemide 20 mg [Lasix 20 mg] 20 mg PO DAILY 11/07/18 [History] Metformin HCl Xr 500 mg [Glucophage XR 500 MG] 500 mg PO BID 11/07/18 [History] Potassium Chloride [Klor-Con M20] 10 meq PO DAILY 11/07/18 [History] Escitalopram Oxalate [Lexapro] 20 mg PO DAILY 01/03/21 [History] Folic Acid 1 mg [Folate 1 mg] 1 mg PO DAILY 01/03/21 [History] Lisinopril/Hydrochlorothiazide [Lisinopril-Hctz 10-12.5 mg Tab] 1 tab PO DAILY 01/03/21 [History] Hx Tetanus, Diphtheria Vaccination/Date Given: No Hx Influenza Vaccination/Date Given: Yes Hx Pneumococcal Vaccination/Date Given: No Travel Risk - International Travel Have you traveled outside of the country in past 3 weeks: No - Coronavirus Screening Are you exhibiting any of the following symptoms?: No Close contact with a COVID-19 positive Pt in past 14-21 Days: No - Review of Systems Constitutional: No Fever, No Chills Eyes: No Symptoms Ears, Nose, & Throat: No Symptoms Respiratory: No Cough, No Dyspnea Cardiac: No Chest Pain, No Edema, No Syncope Abdominal/Gastrointestinal: No Abdominal Pain, No Nausea, No Vomiting, No Diarrhea Genitourinary Symptoms: No Dysuria Musculoskeletal: No Back Pain, No Neck Pain Skin: Rash Neurological: No Dizziness, No Focal Weakness, No Sensory Changes Psychological: No Symptoms Endocrine: No Symptoms All Other Systems: Reviewed and Negative - Past Medical History Pertinent Past Medical History: Yes Neurological History: Migraines Cardiac History: Hypertension Respiratory History: COPD Endocrine Medical History: Diabetes Type II Musculoskeletal History: Other History: Other Other Medical History: TYPE II NIDDM X 6 MOS, PSORIASIS - Past Surgical History Past Surgical History: Yes Genitourinary: Other Female Surgical History: Hysterectomy, Dilation & Curettage, Tubal Ligation Other Surgical History: kidney stones with stent placement - Social History Smoking Status: Former smoker Exposure to second hand smoke: No Drug Use: none Patient Lives Alone: No - Female History Hx Now: No - Nursing Vital Signs Nursing Vital Signs: Initial Vital Signs Temperature 97.9 F 01/03/21 07:06 Pulse Rate 85 01/03/21 07:06 Respiratory Rate 19 01/03/21 07:06 Blood Pressure 109/91 01/03/21 07:06 O2 Sat by Pulse Oximetry 97 01/03/21 07:06 Pain Scale Pain Intensity 7 - Physical Exam General Appearance: mild distress, alert Eye Exam: PERRL/EOMI, eyes nml inspection Ears, Nose, Throat Exam: normal ENT inspection, pharynx normal, moist mucous membranes Neck Exam: normal inspection, non-tender, supple, full range of motion Respiratory Exam: normal breath sounds, lungs clear, No respiratory distress Cardiovascular Exam: regular rate/rhythm, normal heart sounds Gastrointestinal/Abdomen Exam: soft, mass, No tenderness Back Exam: normal inspection, normal range of motion, No CVA tenderness, No ve rtebral tenderness Extremity Exam: normal inspection, normal range of motion Neurologic Exam: alert, oriented x 3, cooperative, normal mood/affect, sensation nml, No motor deficits Skin Exam: rash, other (Scaly lesions and skin of both hands forearms extensor surfaces generalized urticarial rash blanches with pressure) SpO2: 97 - Course Nursing assessment & vital signs reviewed: Yes Ordered Tests: Active Orders 24 hr Category Date Time Status CBC W DIFF Stat Lab 01/03/21 07:45 Completed CMP Stat Lab 01/03/21 07:45 Completed Medication Summary Discontinued Medications Generic Name Dose Route Start Last Admin Trade Name Freq PRN Reason Stop Dose Admin Diphenhydramine HCl 50 mg 01/03/21 07:29 01/03/21 07:41 Benadryl 50 Mg/Ml IM 01/03/21 07:30 50 mg STAT ONE Administration Diphenhydramine HCl Confirm 01/03/21 07:39 Benadryl 50 Mg/Ml Administered 01/03/21 07:40 Dose 50 mg .ROUTE .STK-MED ONE Famotidine 40 mg 01/03/21 07:28 01/03/21 07:40 Pepcid 20 Mg Vial IV 01/03/21 07:29 40 mg STAT ONE Administration Famotidine Confirm 01/03/21 07:39 Pepcid 20 Mg Vial Administered 01/03/21 07:40 Dose 40 mg IV .STK-MED ONE Methylprednisolone Sodium Succinate 125 mg 01/03/21 07:28 01/03/21 07:41 Solu-Medrol 125 Mg IV 01/03/21 07:29 125 mg STAT ONE Administration Methylprednisolone Sodium Succinate Confirm 01/03/21 07:39 Solu-Medrol 125 Mg Administered 01/03/21 07:40 Dose 125 mg .ROUTE .STK-MED ONE Montelukast Sodium 10 mg 01/03/21 07:30 01/03/21 07:52 Singulair 10 Mg PO 01/03/21 07:31 10 mg ONCE STA Administration Lab/Rad Data: Laboratory Result Diagrams 01/03/21 07:45 01/03/21 07:45 Laboratory Results 01/03/21 01/03/21 Range/Units 07:45 07:45 WBC 12.8 H (4.0-10.5) K/mm3 RBC 5.40 (4.1-5.4) M/mm3 Hgb 14.8 (12.0-16.0) gm/dl Hct 45.7 (35-47) % MCV 84.6 (78-100) fl MCH 27.4 (26-32) pg MCHC 32.4 (32-36) g/dl RDW 14.5 H (11.5-14.0) % Plt Count 322 (150-450) K/mm3 MPV 11.4 H (7.5-11.0) fl Gran % 53.4 (36.0-66.0) % Eos # (Auto) 0.34 (0-0.5) Absolute Lymphs (auto) 4.31 (1.0-4.6) Absolute Monos (auto) 1.23 (0.0-1.3) Lymphocytes % 33.8 (24.0-44.0) % Monocytes % 9.6 (0.0-12.0) % Eosinophils % 2.7 (0.00-5.0) % Basophils % 0.5 (0.0-0.4) % Absolute Granulocytes 6.80 (1.4-6.9) Basophils # 0.07 (0-0.4) Sodium 134 L (137-145) mmol/L Potassium 4.0 (3.5-5.1) mmol/L Chloride 96 L (98-107) mmol/L Carbon Dioxide 29 (22-30) mmol/L Anion Gap 13.3 (5-15) MEQ/L BUN 18 H (7-17) mg/dL Creatinine 0.55 (0.52-1.04) mg/dL Estimated GFR > 60.0 ML/MIN Glucose 353 H (74-106) mg/dL Calcium 9.2 (8.4-10.2) mg/dL Total Bilirubin 0.30 (0.2-1.3) mg/dL AST 23 (14-36) U/L ALT 25 (0-35) U/L Alkaline Phosphatase 128 H (38-126) U/L Serum Total Protein 7.4 (6.3-8.2) g/dL Albumin 4.3 (3.5-5.0) g/dL - Progress Progress: improved - Departure Departure Disposition: Home Clinical Impression: Urticaria Condition: Stable Critical Care Time: No Referrals: NUSRAT HOANG NP [Primary Care Provider] - Instructions: Gracy (DEEDEE) Additional Instructions: Continue taking 50 of Benadryl every 6 hours. Prescriptions: Fluconazole [Diflucan] 200 mg PO DAILY 3 Days #3 tablet Triamcinolone 0.1% Lotion [Kenalog 0.1% Lotion] 60 ml TP QID #10 lotion Methylprednisolone Packet [Medrol Dosepack] 4 mg PO UD #1 packet Famotidine 20 mg [Pepcid 20 MG] 20 mg PO BID #60 tablet Montelukast Sodium 10 mg [Singulair 10 MG] 10 mg PO DAILY 30 Days #30 tablet
[2021-01-03 08:05] LABS: BASOPHIL % 0.5 % (0.0-0.4); Basophil (Absolute #) 0.07 (0-0.4); Eosinophil % 2.7 % (0.00-5.0); Eosinophil (Absolute #) 0.34 (0-0.5); Hematocrit 45.7 % (35-47); Hemoglobin 14.8 gm/dl (12.0-16.0); Lymphocyte (Absolute #) 4.31 (1.0-4.6); Lymphocytes % 33.8 % (24.0-44.0); Mean Cell Volume 84.6 fl (78-100); Mean Corpuscular Hemoglobin 27.4 pg (26-32); Mean Corpuscular Hgb Concent. 32.4 g/dl (32-36); Mean Platelet Volume 11.4 fl (7.5-11.0); Monocyte (Absolute #) 1.23 (0.0-1.3); Monocytes % 9.6 % (0.0-12.0); Neutrophil % 53.4 % (36.0-66.0); Platelet Count 322 K/mm3 (150-450); Red Cell Distribution Width 14.5 % (11.5-14.0); White Blood Count 12.8 K/mm3 (4.0-10.5)
[2021-01-03 08:15] LABS: ALBUMIN 4.3 g/dL (3.5-5.0); ALKALINE PHOSPHATASE 128 U/L (38-126); ANION GAP 13.3 MEQ/L (5-15); BLOOD UREA NITROGEN 18 mg/dL (7-17); CHLORIDE 96 mmol/L (98-107); Calcium 9.2 mg/dL (8.4-10.2); Carbon Dioxide 29 mmol/L (22-30); Creatinine 1 0.55 mg/dL (0.52-1.04); EST GLOMERULAR FILTRATION RATE > 60.0 ML/MIN; Glucose 353 mg/dL (74-106); SGOT/AST 23 U/L (14-36); SGPT/ALT 25 U/L (0-35); SODIUM 134 mmol/L (137-145); Total Protein 7.4 g/dL (6.3-8.2)
[2021-01-03 08:24] VITALS: BP 138/112; PULSE 66
[2021-01-03 09:03] VITALS: O2SAT 97
== END 2021-01-03 09:11 | disposition home or self-care (01) ==
LOC: ED 06:59
DX: L50.9 Urticaria, unspecified (principal); L40.9 Psoriasis, unspecified; I10 Essential (primary) hypertension; E11.9 Type 2 diabetes mellitus without complications; J44.9 Chronic obstructive pulmonary disease, unspecified; Z99.81 Dependence on supplemental oxygen; Z79.899 Other long term (current) drug therapy
CPT/HCPCS: 36415; 80053; 85025; 86140; 96374; 96375; 99284; J1200; J2930; A9270-GY

== ENCOUNTER 2021-07-18 22:07 | Emergency (ER) | payer MEDICARE, OTHER ==
[2021-07-18 22:34] VITALS: O2SAT 95
[2021-07-18] MEDS ORDERED: Sodium Chloride 0.9% 1000 ML 1,000 ML IV STA (22:54)
[2021-07-18] MEDS ORDERED: Zofran 4 MG/2 ML VIAL IV ONE (22:54)
--- NOTE | 2021-07-18 22:54 | ERPHSYRPT ---
- History of Present Illness Time Seen by Provider: 07/18/21 22:45 Historian: patient Patient Subjective Stated Complaint: pt states "My has been around a covid inmate and now I don't feel good." Triage Nursing Assessment: pt came into the er via wheelchair; pt is axo x4; c/o vomiting, diarrhea, body aches; states 7/10 pain to back; pt states she wear 2 L O2 at home; pt denies SOB; pt states 5-6 vomiting episodes today and 10-15 diarrhea episodes; pt states she took ibuprofen at 1800; hyperactive bowel sounds in all quads; abd is obese, round, soft; febrile 101.7; tachycardic; O2 95% on 2L [place] Physician History: This is a morbidly obese 56-year-old white female patient of Dr. Carroll who has had 4 days of nausea, vomiting, diarrhea, body aches, cough, shortness of breath and fever. Patient has a history of COPD and it is oxygen dependent. She wears 2 L of oxygen via nasal cannula at home. Patient's has been exposed to multiple patients with Covid 19 infection. However, his most recent Covid test was negative. The patient has a history of COPD, hypertension, type 2 diabetes and migraine headaches. Because of the patient's worsening symptoms over 4 days, she is here in the emergency department for management. Timing/Duration: day(s) (4) Quality: aching Abdominal Pain Onset Location: generalized abdomen Severity of Pain-Max: moderate Severity of Pain-Current: moderate Modifying Factors: Improves With: coughing, vomiting Associated Symptoms: diarrhea, nausea, shortness of breath, vomiting, No chest pain Previous symptoms: no prior history Allergies/Adverse Reactions: Penicillins Allergy (Verified 07/18/21 22:17) Home Medications: Furosemide 20 mg [Lasix 20 mg] 20 mg PO DAILY 11/07/18 [History] Metformin HCl Xr 500 mg [Glucophage XR 500 MG] 1,000 mg PO BID 11/07/18 [History] Potassium Chloride [Klor-Con M20] 10 meq PO DAILY 11/07/18 [History] Escitalopram Oxalate [Lexapro] 20 mg PO DAILY 01/03/21 [History] Folic Acid 1 mg [Folate 1 mg] 1 mg PO DAILY 01/03/21 [History] Lisinopril/Hydrochlorothiazide [Lisinopril-Hctz 10-12.5 mg Tab] 1 tab PO DAILY 01/03/21 [History] Eszopiclone [Lunesta] 2 mg PO HS 07/19/21 [History] Hx Tetanus, Diphtheria Vaccination/Date Given: No Hx Influenza Vaccination/Date Given: No Hx Pneumococcal Vaccination/Date Given: No Travel Risk - International Travel Have you traveled outside of the country in past 3 weeks: No - Coronavirus Screening Are you exhibiting any of the following symptoms?: Yes Symptoms: Fever, Vomiting/Diarrhea, Headaches/Body Aches/Fatigue Close contact with a COVID-19 positive Pt in past 14-21 Days: Yes - Vaccine Status Have you recieved a Covid-19 vaccination: No - Review of Systems Constitutional: Fever Eyes: No Symptoms Ears, Nose, & Throat: No Symptoms Cardiac: No Symptoms Abdominal/Gastrointestinal: Abdominal Pain, Nausea, Vomiting, Diarrhea, Appetite Changes Genitourinary Symptoms: No Symptoms Musculoskeletal: Arthralgias, Myalgias Skin: No Symptoms Neurological: No Symptoms Psychological: No Symptoms Endocrine: No Symptoms Hematologic/Lymphatic: No Symptoms Immunological/Allergic: No Symptoms All Other Systems: Reviewed and Negative - Past Medical History Pertinent Past Medical History: Yes Neurological History: Migraines Cardiac History: Hypertension Respiratory History: COPD Endocrine Medical History: Diabetes Type II Musculoskeletal History: Other History: Other Other Medical History: TYPE II NIDDM X 6 MOS, PSORIASIS - Past Surgical History Past Surgical History: Yes Genitourinary: Other Female Surgical History: Hysterectomy, Dilation & Curettage, Tubal Ligation Other Surgical History: kidney stones with stent placement - Social History Smoking Status: Former smoker Exposure to second hand smoke: No Drug Use: none Patient Lives Alone: No - Female History Hx Now: No - Nursing Vital Signs Nursing Vital Signs: Initial Vital Signs Temperature 101.7 F 07/18/21 22:17 Pulse Rate 117 H 07/18/21 22:17 Respiratory Rate 24 07/18/21 22:17 Blood Pressure 132/71 07/18/21 22:17 O2 Sat by Pulse Oximetry 95 07/18/21 22:17 Pain Scale Pain Intensity 7 - Physical Exam General Appearance: mild distress, alert, anxiety, obese Eye Exam: PERRL/EOMI, eyes nml inspection Ears, Nose, Throat Exam: normal ENT inspection, moist mucous membranes Neck Exam: normal inspection, non-tender, supple, full range of motion Respiratory Exam: normal breath sounds, lungs clear, airway intact, No chest tenderness, No respiratory distress Cardiovascular Exam: normal peripheral pulses, tachycardia Gastrointestinal/Abdomen Exam: soft, normal bowel sounds, tenderness (Mild generalized) Pelvic Exam: not done Rectal Exam: not done Back Exam: normal inspection, normal range of motion, No CVA tenderness, No vertebral tenderness Extremity Exam: normal inspection, normal range of motion, pelvis stable Neurologic Exam: alert, oriented x 3, cooperative, customer care specialist II-XII nml as tested, normal mood/affect, nml cerebellar function, nml station & gait, sensation nml Skin Exam: normal color, warm, dry Lymphatic Exam: No adenopathy SpO2 Interpretation: normal SpO2: 95 O2 Delivery: Room Air - Course Nursing assessment & vital signs reviewed: Yes EKG Interpreted by Me: RATE ([id number]), Sinus Tach, NORMAL AXIS, NORMAL INTERVALS, NORMAL QRS, NORMAL ST-T, Other (No acute ischemia on today's EKG. There are no significant changes when compared to EKG dated 11/07/2018) Ordered Tests: Active Orders 24 hr Category Date Time Status Lead Data Architect STAT Care 07/18/21 22:56 Active EKG-ER Only STAT Care 07/18/21 22:54 Active IV Insertion STAT Care 07/18/21 22:54 Active Isolation, Initiate & Maintain STAT Care 07/18/21 22:57 Active Pulse Oximetry (ED) STAT Care 07/18/21 22:55 Active CHEST 1 VIEW (PORTABLE) Stat Exams 07/18/21 22:56 Taken AMYLASE Stat Lab 07/18/21 23:01 Completed BLOOD CULTURE Stat Lab 07/18/21 23:20 Received CBC W DIFF Stat Lab 07/18/21 23:01 Completed CMP Stat Lab 07/18/21 23:01 Completed CULTURE,URINE Stat Lab 07/18/21 00:38 Received D-DIMER QUANTITATIVE Stat Lab 07/18/21 23:01 Completed Ferritin Stat Lab 07/18/21 23:20 Completed INFLUENZA A+B ALFA Stat Lab 07/18/21 23:20 Completed LDH-LACTATE DEHYDROGENASE Routine Lab 07/18/21 23:01 Completed LIPASE Stat Lab 07/18/21 23:01 Completed Lactic Acid Stat Lab 07/18/21 23:07 Completed Lactic Acid Stat Lab 07/19/21 01:17 Received [place] Screen Stat Lab 07/18/21 23:20 Completed TROPONIN Q3H Lab 07/18/21 23:01 Completed TROPONIN Q3H Lab 07/19/21 02:00 Ordered TROPONIN Q3H Lab 07/19/21 05:00 Ordered TROPONIN Q3H Lab 07/19/21 08:00 Ordered TROPONIN Q3H Lab 07/19/21 11:00 Ordered UA W/RFX UR CULTURE Stat Lab 07/18/21 00:38 Completed Medication Summary Generic Name Dose Route Start Last Admin Trade Name Freq PRN Reason Stop Dose Admin Sodium Chloride 1,000 mls @ 999 mls/hr 07/19/21 00:51 07/19/21 00:54 Sodium Chloride 0.9% 1000 Ml IV 07/19/21 01:51 999 mls/hr .Q1H1M STA Administration Discontinued Medications Generic Name Dose Route Start Last Admin Trade Name Freq PRN Reason Stop Dose Admin Sodium Chloride 1,000 mls @ 999 mls/hr 07/18/21 22:54 07/19/21 00:10 Sodium Chloride 0.9% 1000 Ml IV 07/18/21 23:54 Infused .Q1H1M STA Infusion Sodium Chloride Confirm 07/18/21 23:02 Sodium Chloride 0.9% 1000 Ml Administered 07/18/21 23:03 Dose 1,000 mls @ ud .ROUTE .STK-MED ONE Sodium Chloride Confirm 07/19/21 00:53 Sodium Chloride 0.9% 1000 Ml Administered 07/19/21 00:54 Dose 1,000 mls @ ud .ROUTE .STK-MED ONE Insulin Human Regular 8 unit 07/19/21 01:17 Humulin R IV 07/19/21 01:18 STAT ONE Ondansetron HCl 4 mg 07/18/21 22:54 07/18/21 23:04 Zofran 4 Mg/2 Ml Vial IV 07/18/21 22:55 4 mg STAT ONE Administration Ondansetron HCl Confirm 07/18/21 23:02 Zofran 4 Mg/2 Ml Vial Administered 07/18/21 23:03 Dose 4 mg .ROUTE .STK-MED ONE Lab/Rad Data: Laboratory Result Diagrams 07/18/21 23:01 07/18/21 23:01 Laboratory Results 07/18/21 07/18/21 07/18/21 Range/Units 23:20 23:20 23:20 WBC (4.0-10.5) K/mm3 RBC (4.1-5.4) M/mm3 Hgb (12.0-16.0) gm/dl Hct (35-47) % MCV (78-100) fl MCH (26-32) pg MCHC (32-36) g/dl RDW (11.5-14.0) % Plt Count (150-450) K/mm3 MPV (7.5-11.0) fl Gran % (36.0-66.0) % Eos # (Auto) (0-0.5) Absolute Lymphs (auto) (1.0-4.6) Absolute Monos (auto) (0.0-1.3) Lymphocytes % (24.0-44.0) % Monocytes % (0.0-12.0) % Eosinophils % (0.00-5.0) % Basophils % (0.0-0.4) % Absolute Granulocytes (1.4-6.9) Basophils # (0-0.4) D-Dimer (215-500) ng/mL Sodium (137-145) mmol/L Potassium (3.5-5.1) mmol/L Chloride (98-107) mmol/L Carbon Dioxide (22-30) mmol/L Anion Gap (5-15) MEQ/L BUN (7-17) mg/dL Creatinine (0.52-1.04) mg/dL Estimated GFR ML/MIN Glucose (74-106) mg/dL Lactic Acid (0.4-2.0) Calcium (8.4-10.2) mg/dL Ferritin 448 H (11.1-264) ng/mL Total Bilirubin (0.2-1.3) mg/dL AST (14-36) U/L ALT (0-35) U/L Alkaline Phosphatase (38-126) U/L Lactate Dehydrogenase (120-246) U/L Troponin I (0.000-0.034) ng/mL Serum Total Protein (6.3-8.2) g/dL Albumin (3.5-5.0) g/dL Amylase (30-110) U/L Lipase (23-300) U/L Urine Color (YELLOW) Urine Appearance (CLEAR) Urine pH (5-6) Ur Specific [place] (1.005-1.025) Urine Protein (Negative) Urine Ketones (NEGATIVE) Urine Blood (0-5) [place]/ul Urine Nitrite (NEGATIVE) Urine Bilirubin (NEGATIVE) Urine Urobilinogen (0-1) mg/dL Ur Leukocyte Esterase (NEGATIVE) Urine WBC (Auto) (0-5) /HPF Urine RBC (Auto) (0-2) /HPF U Epithel Cells (Auto) (FEW) /HPF Urine Bacteria (Auto) (NEGATIVE) /HPF Urine Mucus (Auto) (NEGATIVE) /HPF Urine Culture Reflexed (NO) Urine Glucose (NEGATIVE) mg/dL Monoscreen NEGATIVE (Negative) Influenza Type A Ag (NEGATIVE) Influenza Type B Ag (NEGATIVE) Group A Strep Antibody NOT DETECTED (NEGATIVE) 07/18/21 07/18/21 07/18/21 Range/Units 23:20 23:07 23:01 WBC (4.0-10.5) K/mm3 RBC (4.1-5.4) M/mm3 Hgb (12.0-16.0) gm/dl Hct (35-47) % MCV (78-100) fl MCH (26-32) pg MCHC (32-36) g/dl RDW (11.5-14.0) % Plt Count (150-450) K/mm3 MPV (7.5-11.0) fl Gran % (36.0-66.0) % Eos # (Auto) (0-0.5) Absolute Lymphs (auto) (1.0-4.6) Absolute Monos (auto) (0.0-1.3) Lymphocytes % (24.0-44.0) % Monocytes % (0.0-12.0) % Eosinophils % (0.00-5.0) % Basophils % (0.0-0.4) % Absolute Granulocytes (1.4-6.9) Basophils # (0-0.4) D-Dimer (215-500) ng/mL Sodium (137-145) mmol/L Potassium (3.5-5.1) mmol/L Chloride (98-107) mmol/L Carbon Dioxide (22-30) mmol/L Anion Gap (5-15) MEQ/L BUN (7-17) mg/dL Creatinine (0.52-1.04) mg/dL Estimated GFR ML/MIN Glucose (74-106) mg/dL Lactic Acid 2.0 (0.4-2.0) Calcium (8.4-10.2) mg/dL Ferritin (11.1-264) ng/mL Total Bilirubin (0.2-1.3) mg/dL AST (14-36) U/L ALT (0-35) U/L Alkaline Phosphatase (38-126) U/L Lactate Dehydrogenase 254 H (120-246) U/L Troponin I < 0.012 (0.000-0.034) ng/mL Serum Total Protein (6.3-8.2) g/dL Albumin (3.5-5.0) g/dL Amylase (30-110) U/L Lipase (23-300) U/L Urine Color (YELLOW) Urine Appearance (CLEAR) Urine pH (5-6) Ur Specific [place] (1.005-1.025) Urine Protein (Negative) Urine Ketones (NEGATIVE) Urine Blood (0-5) [place]/ul Urine Nitrite (NEGATIVE) Urine Bilirubin (NEGATIVE) Urine Urobilinogen (0-1) mg/dL Ur Leukocyte Esterase (NEGATIVE) Urine WBC (Auto) (0-5) /HPF Urine RBC (Auto) (0-2) /HPF U Epithel Cells (Auto) (FEW) /HPF Urine Bacteria (Auto) (NEGATIVE) /HPF Urine Mucus (Auto) (NEGATIVE) /HPF Urine Culture Reflexed (NO) Urine Glucose (NEGATIVE) mg/dL Monoscreen (Negative) Influenza Type A Ag NEGATIVE (NEGATIVE) Influenza Type B Ag NEGATIVE (NEGATIVE) Group A Strep Antibody (NEGATIVE) 07/18/21 07/18/21 07/18/21 Range/Units 23:01 23:01 23:01 WBC 7.5 (4.0-10.5) K/mm3 RBC 5.64 H (4.1-5.4) M/mm3 Hgb 16.2 H (12.0-16.0) gm/dl Hct 48.0 H (35-47) % MCV 85.1 (78-100) fl MCH 28.7 (26-32) pg MCHC 33.8 (32-36) g/dl RDW 13.7 (11.5-14.0) % Plt Count 164 (150-450) K/mm3 MPV 12.0 H (7.5-11.0) fl Gran % 53.3 (36.0-66.0) % Eos # (Auto) 0.02 (0-0.5) Absolute Lymphs (auto) 2.41 (1.0-4.6) Absolute Monos (auto) 1.04 (0.0-1.3) Lymphocytes % 32.1 (24.0-44.0) % Monocytes % 13.8 H (0.0-12.0) % Eosinophils % 0.3 (0.00-5.0) % Basophils % 0.5 (0.0-0.4) % Absolute Granulocytes 4.00 (1.4-6.9) Basophils # 0.04 (0-0.4) D-Dimer 423 (215-500) ng/mL Sodium 131 L (137-145) mmol/L Potassium 3.9 (3.5-5.1) mmol/L Chloride 99 (98-107) mmol/L Carbon Dioxide 20 L (22-30) mmol/L Anion Gap 15.4 H (5-15) MEQ/L BUN 17 (7-17) mg/dL Creatinine 0.50 L (0.52-1.04) mg/dL Estimated GFR > 60.0 ML/MIN Glucose 383 H (74-106) mg/dL Lactic Acid (0.4-2.0) Calcium 8.4 (8.4-10.2) mg/dL Ferritin (11.1-264) ng/mL Total Bilirubin 0.60 (0.2-1.3) mg/dL AST 53 H (14-36) U/L ALT 44 H (0-35) U/L Alkaline Phosphatase 144 H (38-126) U/L Lactate Dehydrogenase (120-246) U/L Troponin I (0.000-0.034) ng/mL Serum Total Protein 6.8 (6.3-8.2) g/dL Albumin 3.7 (3.5-5.0) g/dL Amylase 36 (30-110) U/L Lipase 39 (23-300) U/L Urine Color (YELLOW) Urine Appearance (CLEAR) Urine pH (5-6) Ur Specific [place] (1.005-1.025) Urine Protein (Negative) Urine Ketones (NEGATIVE) Urine Blood (0-5) [place]/ul Urine Nitrite (NEGATIVE) Urine Bilirubin (NEGATIVE) Urine Urobilinogen (0-1) mg/dL Ur Leukocyte Esterase (NEGATIVE) Urine WBC (Auto) (0-5) /HPF Urine RBC (Auto) (0-2) /HPF U Epithel Cells (Auto) (FEW) /HPF Urine Bacteria (Auto) (NEGATIVE) /HPF Urine Mucus (Auto) (NEGATIVE) /HPF Urine Culture Reflexed (NO) Urine Glucose (NEGATIVE) mg/dL Monoscreen (Negative) Influenza Type A Ag (NEGATIVE) Influenza Type B Ag (NEGATIVE) Group A Strep Antibody (NEGATIVE) 07/18/21 Range/Units 00:38 WBC (4.0-10.5) K/mm3 RBC (4.1-5.4) M/mm3 Hgb (12.0-16.0) gm/dl Hct (35-47) % MCV (78-100) fl MCH (26-32) pg MCHC (32-36) g/dl RDW (11.5-14.0) % Plt Count (150-450) K/mm3 MPV (7.5-11.0) fl Gran % (36.0-66.0) % Eos # (Auto) (0-0.5) Absolute Lymphs (auto) (1.0-4.6) Absolute Monos (auto) (0.0-1.3) Lymphocytes % (24.0-44.0) % Monocytes % (0.0-12.0) % Eosinophils % (0.00-5.0) % Basophils % (0.0-0.4) % Absolute Granulocytes (1.4-6.9) Basophils # (0-0.4) D-Dimer (215-500) ng/mL Sodium (137-145) mmol/L Potassium (3.5-5.1) mmol/L Chloride (98-107) mmol/L Carbon Dioxide (22-30) mmol/L Anion Gap (5-15) MEQ/L BUN (7-17) mg/dL Creatinine (0.52-1.04) mg/dL Estimated GFR ML/MIN Glucose (74-106) mg/dL Lactic Acid (0.4-2.0) Calcium (8.4-10.2) mg/dL Ferritin (11.1-264) ng/mL Total Bilirubin (0.2-1.3) mg/dL AST (14-36) U/L ALT (0-35) U/L Alkaline Phosphatase (38-126) U/L Lactate Dehydrogenase (120-246) U/L Troponin I (0.000-0.034) ng/mL Serum Total Protein (6.3-8.2) g/dL Albumin (3.5-5.0) g/dL Amylase (30-110) U/L Lipase (23-300) U/L Urine Color YELLOW (YELLOW) Urine Appearance SLIGHTLY CLOUDY (CLEAR) Urine pH 5.0 (5-6) Ur Specific [place] 1.032 (1.005-1.025) Urine Protein 30 (Negative) Urine Ketones SMALL (NEGATIVE) Urine Blood LARGE (0-5) [place]/ul Urine Nitrite NEGATIVE (NEGATIVE) Urine Bilirubin NEGATIVE (NEGATIVE) Urine Urobilinogen NEGATIVE (0-1) mg/dL Ur Leukocyte Esterase NEGATIVE (NEGATIVE) Urine WBC (Auto) 11-15 (0-5) /HPF Urine RBC (Auto) 11-15 (0-2) /HPF U Epithel Cells (Auto) RARE (FEW) /HPF Urine Bacteria (Auto) NONE (NEGATIVE) /HPF Urine Mucus (Auto) SLIGHT (NEGATIVE) /HPF Urine Culture Reflexed YES (NO) Urine Glucose >=500 (NEGATIVE) mg/dL Monoscreen (Negative) Influenza Type A Ag (NEGATIVE) Influenza Type B Ag (NEGATIVE) Group A Strep Antibody (NEGATIVE) - Progress Progress: improved, re-examined Progress Note: 07/19/21 01:29 Chest x-ray shows no acute cardiopulmonary process. There is cardiomegaly present. 07/19/21 01:36 Medical decision making: This patient states that she is feeling much better with hydration. Her nausea has resolved. She has no abdominal pain. She has no chest pain. She is not short of breath. Patient likely has a viral illness. We will have the patient complete her intravenous fluids, receive her insulin intravenously as ordered and repeat a blood sugar. Counseled pt/family regarding: lab results, diagnosis, need for follow-up, rad results - Departure Clinical Impression: Hyperglycemia, Dehydration, mild, Viral illness Condition: Stable Critical Care Time: No Referrals: PRAVEENA CARROLL MD [Primary Care Provider] - Prescriptions: Ondansetron ODT 4 MG [Zofran Odt 4 mg] 4 mg PO Q6H PRN PRN #10 tablet PRN Reason: Vomiting
[2021-07-18] MEDS ORDERED: Zofran 4 MG/2 ML VIAL ONE (23:02)
[2021-07-18] MEDS ORDERED: Sodium Chloride 0.9% 1000 ML 1,000 ML ONE (23:02)
[2021-07-18 23:10] LABS: BASOPHIL % 0.5 % (0.0-0.4); Basophil (Absolute #) 0.04 (0-0.4); Eosinophil % 0.3 % (0.00-5.0); Eosinophil (Absolute #) 0.02 (0-0.5); Hemoglobin 16.2 gm/dl (12.0-16.0); Lymphocyte (Absolute #) 2.41 (1.0-4.6); Lymphocytes % 32.1 % (24.0-44.0); Mean Cell Volume 85.1 fl (78-100); Mean Corpuscular Hemoglobin 28.7 pg (26-32); Mean Corpuscular Hgb Concent. 33.8 g/dl (32-36); Monocyte (Absolute #) 1.04 (0.0-1.3); Monocytes % 13.8 % (0.0-12.0); Neutrophil % 53.3 % (36.0-66.0); Platelet Count 164 K/mm3 (150-450); Red Blood Count 5.64 M/mm3 (4.1-5.4); Red Cell Distribution Width 13.7 % (11.5-14.0); White Blood Count 7.5 K/mm3 (4.0-10.5)
[2021-07-18 23:33] LABS: LDH-LACTATE DEHYDROGENASE 254 U/L (120-246); TROPONIN < 0.012 ng/mL (0.000-0.034)
[2021-07-18 23:48] LABS: ALBUMIN 3.7 g/dL (3.5-5.0); ALKALINE PHOSPHATASE 144 U/L (38-126); AMYLASE 36 U/L (30-110); ANION GAP 15.4 MEQ/L (5-15); BLOOD UREA NITROGEN 17 mg/dL (7-17); CHLORIDE 99 mmol/L (98-107); Calcium 8.4 mg/dL (8.4-10.2); Carbon Dioxide 20 mmol/L (22-30); EST GLOMERULAR FILTRATION RATE > 60.0 ML/MIN; Glucose 383 mg/dL (74-106); LIPASE 39 U/L (23-300); Potassium 3.9 mmol/L (3.5-5.1); SGOT/AST 53 U/L (14-36); SGPT/ALT 44 U/L (0-35); SODIUM 131 mmol/L (137-145); Total Protein 6.8 g/dL (6.3-8.2)
[2021-07-18 23:57] LABS: INFLUENZA A NEGATIVE (NEGATIVE); INFLUENZA B NEGATIVE (NEGATIVE)
[2021-07-19 00:46] LABS: Appearance SLIGHTLY CLOUDY (CLEAR); Bilirubin NEGATIVE (NEGATIVE); Blood LARGE Ery/ul (0-5); Epithelial Cells RARE /HPF (FEW); Glucose >=500 mg/dL (NEGATIVE); Ketones SMALL (NEGATIVE); Leukocyte Esterase NEGATIVE (NEGATIVE); Mucus SLIGHT /HPF (NEGATIVE); Nitrite NEGATIVE (NEGATIVE); Protein,Urine Dip 30 (Negative); Specific Gravity 1.032 (1.005-1.025); Urobilinogen NEGATIVE mg/dL (0-1)
[2021-07-19] MEDS ORDERED: Sodium Chloride 0.9% 1000 ML 1,000 ML IV STA (00:51)
[2021-07-19] MEDS ORDERED: Sodium Chloride 0.9% 1000 ML 1,000 ML ONE (00:53)
[2021-07-19] MEDS ORDERED: HUMULIN R IV ONE (01:17)
[2021-07-19] MEDS ORDERED: HUMULIN R ONE (01:48)
[2021-07-19 02:13] VITALS: BP 101/62; PULSE 92
--- NOTE | 2021-07-19 08:15 | XRAY ---
Indication: Fever and cough. Comparison: November 07, 2018. Portable chest demonstrates new left midlung fibrosis/scarring and mild left hemidiaphragm elevation. Heart remains enlarged. Bony thorax intact. No acute cardiopulmonary abnormalities.
== END 2021-07-19 02:20 | disposition home or self-care (01) ==
LOC: ED 22:07
DX: E78.1 Pure hyperglyceridemia (principal); E86.0 Dehydration; B34.9 Viral infection, unspecified; R11.0 Nausea; R11.2 Nausea with vomiting, unspecified; R19.7 Diarrhea, unspecified; M79.18 Myalgia, other site; R05 Cough; I10 Essential (primary) hypertension; J44.9 Chronic obstructive pulmonary disease, unspecified; E11.9 Type 2 diabetes mellitus without complications; Z79.899 Other long term (current) drug therapy
CPT/HCPCS: 36000; 36415; 71045; 80053; 81001; 82150; 82728; 83605; 83615; 83690; 84484; 85025; 85379; 86308; 87040; 87086; 87400; 87651; 93005; 93041; 94760; 96360; 96361; 96374; 96375; 99285; U0003; J1815; J2405

== ENCOUNTER 2022-01-09 11:26 | Emergency (ER) | payer MEDICARE, OTHER ==
[2022-01-09] MEDS ORDERED: HUMULIN R IV ONE (12:11)
[2022-01-09] MEDS ORDERED: Sodium Chloride 0.9% 1000 ML 1,000 ML IV STA (12:11)
[2022-01-09] MEDS ORDERED: HUMULIN R SQ ONE (12:13)
--- NOTE | 2022-01-09 12:19 | ERPHSYRPT ---
- History of Present Illness Source: patient Exam Limitations: other (Poor historian) Patient Subjective Stated Complaint: hyperglycemia--forgot to take her insulin today and so she came to the ER Triage Nursing Assessment: Pt drove self to the ER, tachycardic, denies pain, pt came in w/o oxygen but states she is supposed to be on is /, pt stated that she forgot to take her insulin today and she fell asleep and still forgot to take it but she came to the ER because her sugar was high, upon arrival her BS on our machine it was 383, this nurse believes this pt to be non compliant with her medications, pulses normal, denies pain, pulses normal, skin n/w/d, no N&V, doesn't appear to be in any distress Physician History: 56 yo wf w DM2 presents w hyperglycemia. She did not take her Insulin today. States that she has been dry. Pt denies N/V/D/chest pain/dyspnea/dysuria/hematuria/fever. States that she forgot to inject her insulin because she is under a lot of stress at home. Timing/Duration: today Severity: mild Associated Symptoms: No nausea, No vomiting, No abdominal pain, No shortness of breath, No heartburn, No diaphoresis, No cough, No chills, No chest pain, No fever, No headaches, No loss of appetite, No malaise, No rash, No syncope, No seizure, No weakness Allergies/Adverse Reactions: Penicillins Allergy (Verified 01/09/22 11:53) Home Medications: Furosemide 20 mg [Lasix 20 mg] 20 mg PO DAILY 11/07/18 [History] Metformin HCl Xr 500 mg [Glucophage XR 500 MG] 500 mg PO BID 11/07/18 [History] Potassium Chloride [Klor-Con M20] 10 meq PO DAILY 11/07/18 [History] Escitalopram Oxalate [Lexapro] 20 mg PO DAILY 01/03/21 [History] Folic Acid 1 mg [Folate 1 mg] 1 mg PO DAILY 01/03/21 [History] Lisinopril/Hydrochlorothiazide [Lisinopril-Hctz 10-12.5 mg Tab] 1 tab PO DAILY 01/03/21 [History] Insulin Detemir [Levemir] 10 unit SQ DAILY 01/09/22 [History] Insulin Glargine,Hum.rec.anlog [Balbir Alvarez U-100] 1 unit SQ UD 01/09/22 [History] Hx Tetanus, Diphtheria Vaccination/Date Given: No Hx Influenza Vaccination/Date Given: No Hx Pneumococcal Vaccination/Date Given: No Travel Risk - International Travel Have you traveled outside of the country in past 3 weeks: No - Coronavirus Screening Are you exhibiting any of the following symptoms?: No Close contact with a COVID-19 positive Pt in past 14-21 Days: No - Vaccine Status Have you recieved a Covid-19 vaccination: No - Review of Systems Constitutional: No Symptoms Eyes: No Symptoms Ears, Nose, & Throat: No Symptoms Respiratory: No Symptoms Cardiac: No Symptoms Abdominal/Gastrointestinal: No Symptoms Genitourinary Symptoms: No Symptoms Musculoskeletal: No Symptoms Skin: No Symptoms Neurological: No Symptoms Psychological: No Symptoms Endocrine: No Symptoms Hematologic/Lymphatic: No Symptoms Immunological/Allergic: No Symptoms - Past Medical History Pertinent Past Medical History: Yes Neurological History: Migraines Cardiac History: Hypertension Respiratory History: COPD Endocrine Medical History: Diabetes Type II Musculoskeletal History: Other History: Other Other Medical History: TYPE II NIDDM X 6 MOS, PSORIASIS - Past Surgical History Past Surgical History: Yes Genitourinary: Other Female Surgical History: Hysterectomy, Dilation & Curettage, Tubal Ligation Other Surgical History: kidney stones with stent placement - Social History Smoking Status: Former smoker Exposure to second hand smoke: No Drug Use: none Patient Lives Alone: No Significant Family History: no pertinent family hx - Nursing Vital Signs Nursing Vital Signs: Initial Vital Signs Temperature 95.7 F 01/09/22 11:32 Pulse Rate 118 H 01/09/22 11:32 Blood Pressure 123/79 01/09/22 11:32 O2 Sat by Pulse Oximetry 94 L 01/09/22 11:32 Pain Scale Pain Intensity 0 Tachy/Borderline sat-not on O2 - Physical Exam General Appearance: no apparent distress, anxiety Eye Exam: PERRL/EOMI, eyes nml inspection Ears, Nose, Throat Exam: normal ENT inspection, TMs normal, pharynx normal, moist mucous membranes Neck Exam: normal inspection, non-tender, supple, full range of motion, No meningismus, No mass, No Brudzinski, No Kernig's Respiratory Exam: normal breath sounds, airway intact Cardiovascular Exam: tachycardia, capillary refill <2 sec, No murmur Gastrointestinal/Abdomen Exam: soft, normal bowel sounds, No tenderness Back Exam: normal inspection, normal range of motion, No CVA tenderness, No vertebral tenderness Extremity Exam: normal inspection, normal range of motion Neurologic Exam: alert, oriented x 3, cooperative, 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, normal mood/affect, nml cerebellar function, nml station & gait, sensation nml, No motor deficits, No sensory deficit Skin Exam: normal color, warm, dry Lymphatic Exam: No adenopathy SpO2 Interpretation: borderline oxygenation SpO2: 94 O2 Delivery: Room Air - Course Nursing assessment & vital signs reviewed: Yes Ordered Tests: Active Orders 24 hr Category Date Time Status CBC W DIFF Stat Lab 01/09/22 12:19 Completed CMP Stat Lab 01/09/22 12:19 Completed CULTURE,URINE Stat Lab 01/09/22 12:36 Received POCT GLUCOSE Stat Lab 01/09/22 11:41 Completed POCT GLUCOSE Stat Lab 01/09/22 13:45 Completed TROPONIN Q3H Lab 01/09/22 12:19 Completed UA W/RFX UR CULTURE Stat Lab 01/09/22 12:36 Completed Medication Summary Discontinued Medications Generic Name Dose Route Start Last Admin Trade Name Bar PRN Reason Stop Dose Admin Sodium Chloride 1,000 mls @ 999 mls/hr 01/09/22 12:11 01/09/22 13:52 Sodium Chloride 0.9% 1000 Ml IV 01/09/22 13:11 Infused .Q1H1M STA Infusion Sodium Chloride Confirm 01/09/22 12:31 Sodium Chloride 0.9% 1000 Ml Administered 01/09/22 12:32 Dose 1,000 mls @ ud .ROUTE .STK-MED ONE Insulin Human Regular 5 unit 01/09/22 12:11 01/09/22 12:33 Insulin Regular, Human 1 Unit IV 01/09/22 12:12 5 unit STAT ONE Administration Insulin Human Regular 10 unit 01/09/22 12:13 01/09/22 12:33 Insulin Regular, Human 1 Unit SQ 01/09/22 12:14 10 unit STAT ONE Administration Insulin Human Regular Confirm 01/09/22 12:31 Insulin Regular, Human 1 Unit Administered 01/09/22 12:32 Dose 5 unit .ROUTE .[facility] ONE Insulin Human Regular Confirm 01/09/22 12:31 Insulin Regular, Human 1 Unit Administered 01/09/22 12:32 Dose 10 unit .ROUTE .STK-MED ONE Lab/Rad Data: Laboratory Result Diagrams 01/09/22 12:19 01/09/22 12:19 Laboratory Results 01/09/22 01/09/22 01/09/22 Range/Units 13:45 12:36 12:19 WBC (4.0-10.5) K/mm3 RBC (4.1-5.4) M/mm3 Hgb (12.0-16.0) gm/dl Hct (35-47) % MCV (78-100) fl MCH (26-32) pg MCHC (32-36) g/dl RDW (11.5-14.0) % Plt Count (150-450) K/mm3 MPV (7.5-11.0) fl Gran % (36.0-66.0) % Eos # (Auto) (0-0.5) Absolute Lymphs (auto) (1.0-4.6) Absolute Monos (auto) (0.0-1.3) Lymphocytes % (24.0-44.0) % Monocytes % (0.0-12.0) % Eosinophils % (0.00-5.0) % Basophils % (0.0-0.4) % Absolute Granulocytes (1.4-6.9) Basophils # (0-0.4) Sodium (137-145) mmol/L Potassium (3.5-5.1) mmol/L Chloride (98-107) mmol/L Carbon Dioxide (22-30) mmol/L Anion Gap (5-15) MEQ/L BUN (7-17) mg/dL Creatinine (0.52-1.04) mg/dL Estimated GFR ML/MIN Glucose (74-106) mg/dL POC Glucometer 278 H (74 to 106) mg/dL Calcium (8.4-10.2) mg/dL Total Bilirubin (0.2-1.3) mg/dL AST (14-36) U/L ALT (0-35) U/L Alkaline Phosphatase (38-126) U/L Troponin I < 0.012 (0.000-0.034) ng/mL Serum Total Protein (6.3-8.2) g/dL Albumin (3.5-5.0) g/dL Urine Color YELLOW (YELLOW) Urine Appearance CLOUDY (CLEAR) Urine pH 6.0 (5-6) Ur Specific [place] 1.035 (1.005-1.025) Urine Protein NEGATIVE (Negative) Urine Ketones TRACE (NEGATIVE) Urine Blood SMALL (0-5) [place]/ul Urine Nitrite NEGATIVE (NEGATIVE) Urine Bilirubin NEGATIVE (NEGATIVE) Urine Urobilinogen NEGATIVE (0-1) mg/dL Ur Leukocyte Esterase MODERATE (NEGATIVE) Urine WBC (Auto) 6-10 (0-5) /HPF Urine RBC (Auto) 3-5 (0-2) /HPF U Hyaline Cast (Auto) 0-2 (0-2) /LPF U Epithel Cells (Auto) FEW (FEW) /HPF Urine Bacteria (Auto) RARE (NEGATIVE) /HPF Urine Mucus (Auto) SLIGHT (NEGATIVE) /HPF Urine Culture Reflexed YES (NO) Urine Glucose >=500 (NEGATIVE) mg/dL 01/09/22 01/09/22 01/09/22 Range/Units 12:19 12:19 11:41 WBC 10.4 (4.0-10.5) K/mm3 RBC 5.66 H (4.1-5.4) M/mm3 Hgb 16.7 H (12.0-16.0) gm/dl Hct 47.9 H (35-47) % MCV 84.6 (78-100) fl MCH 29.5 (26-32) pg MCHC 34.9 (32-36) g/dl RDW 13.4 (11.5-14.0) % Plt Count 270 (150-450) K/mm3 MPV 11.2 H (7.5-11.0) fl Gran % 57.6 (36.0-66.0) % Eos # (Auto) 0.16 (0-0.5) Absolute Lymphs (auto) 3.49 (1.0-4.6) Absolute Monos (auto) 0.70 (0.0-1.3) Lymphocytes % 33.6 (24.0-44.0) % Monocytes % 6.7 (0.0-12.0) % Eosinophils % 1.5 (0.00-5.0) % Basophils % 0.6 (0.0-0.4) % Absolute Granulocytes 5.99 (1.4-6.9) Basophils # 0.06 (0-0.4) Sodium 133 L (137-145) mmol/L Potassium 4.0 (3.5-5.1) mmol/L Chloride 100 (98-107) mmol/L Carbon Dioxide 24 (22-30) mmol/L Anion Gap 13.1 (5-15) MEQ/L BUN 19 H (7-17) mg/dL Creatinine 0.49 L (0.52-1.04) mg/dL Estimated GFR > 60.0 ML/MIN Glucose 427 H (74-106) mg/dL POC Glucometer 383 H (74 to 106) mg/dL Calcium 9.1 (8.4-10.2) mg/dL Total Bilirubin 0.70 (0.2-1.3) mg/dL AST 28 (14-36) U/L ALT 26 (0-35) U/L Alkaline Phosphatase 168 H (38-126) U/L Troponin I (0.000-0.034) ng/mL Serum Total Protein 6.9 (6.3-8.2) g/dL Albumin 4.0 (3.5-5.0) g/dL Urine Color (YELLOW) Urine Appearance (CLEAR) Urine pH (5-6) Ur Specific [place] (1.005-1.025) Urine Protein (Negative) Urine Ketones (NEGATIVE) Urine Blood (0-5) [place]/ul Urine Nitrite (NEGATIVE) Urine Bilirubin (NEGATIVE) Urine Urobilinogen (0-1) mg/dL Ur Leukocyte Esterase (NEGATIVE) Urine WBC (Auto) (0-5) /HPF Urine RBC (Auto) (0-2) /HPF U Hyaline Cast (Auto) (0-2) /LPF U Epithel Cells (Auto) (FEW) /HPF Urine Bacteria (Auto) (NEGATIVE) /HPF Urine Mucus (Auto) (NEGATIVE) /HPF Urine Culture Reflexed (NO) Urine Glucose (NEGATIVE) mg/dL - Progress Progress: improved Progress Note: 01/09/22 13:47 1L NS bolus/10units sq InsulinR/5units IV InsulinR Glucose in 278 after treatment 01/09/22 13:49 Counseled pt/family regarding: lab results, diagnosis, need for follow-up - Departure Departure Disposition: Home Clinical Impression: Hyperglycemia due to diabetes mellitus, UTI (urinary tract infection) Condition: Stable Critical Care Time: No Referrals: PRAVEENA CARROLL MD [Primary Care Provider] - Follow up/PCP as directed Instructions: Urinary Tract Infection, Adult (DC), Hyperglycemia, Adult (DC) Additional Instructions: Continue current diabetes management Macrobid twice a day for 5 days Follow up with your family MD on Wednesday Return to ER as needed Prescriptions: Nitrofurantoin Macro 100 mg [Macrobid 100MG Capsule] 100 mg PO BID 5 Days #10 cap
[2022-01-09] MEDS ORDERED: HUMULIN R ONE ×2 (12:31)
[2022-01-09] MEDS ORDERED: Sodium Chloride 0.9% 1000 ML 1,000 ML ONE (12:31)
[2022-01-09 12:32] LABS: Absolute Neutrophil Ct (ANC) 5.99 (1.4-6.9); Basophil (Absolute #) 0.06 (0-0.4); Eosinophil % 1.5 % (0.00-5.0); Eosinophil (Absolute #) 0.16 (0-0.5); Hematocrit 47.9 % (35-47); Hemoglobin 16.7 gm/dl (12.0-16.0); Lymphocyte (Absolute #) 3.49 (1.0-4.6); Lymphocytes % 33.6 % (24.0-44.0); Mean Cell Volume 84.6 fl (78-100); Mean Corpuscular Hemoglobin 29.5 pg (26-32); Mean Corpuscular Hgb Concent. 34.9 g/dl (32-36); Mean Platelet Volume 11.2 fl (7.5-11.0); Monocytes % 6.7 % (0.0-12.0); Neutrophil % 57.6 % (36.0-66.0); Platelet Count 270 K/mm3 (150-450); Red Blood Count 5.66 M/mm3 (4.1-5.4); Red Cell Distribution Width 13.4 % (11.5-14.0); White Blood Count 10.4 K/mm3 (4.0-10.5)
[2022-01-09 12:46] LABS: ALKALINE PHOSPHATASE 168 U/L (38-126); ANION GAP 13.1 MEQ/L (5-15); BLOOD UREA NITROGEN 19 mg/dL (7-17); CHLORIDE 100 mmol/L (98-107); Calcium 9.1 mg/dL (8.4-10.2); Carbon Dioxide 24 mmol/L (22-30); Creatinine 1 0.49 mg/dL (0.52-1.04); EST GLOMERULAR FILTRATION RATE > 60.0 ML/MIN; Glucose 427 mg/dL (74-106); SGOT/AST 28 U/L (14-36); SGPT/ALT 26 U/L (0-35); SODIUM 133 mmol/L (137-145); Total Protein 6.9 g/dL (6.3-8.2)
[2022-01-09 13:41] LABS: Appearance CLOUDY (CLEAR); Bacteria RARE /HPF (NEGATIVE); Bilirubin NEGATIVE (NEGATIVE); Blood SMALL Ery/ul (0-5); Epithelial Cells FEW /HPF (FEW); Glucose >=500 mg/dL (NEGATIVE); Hyaline Casts 0-2 /LPF (0-2); Ketones TRACE (NEGATIVE); Leukocyte Esterase MODERATE (NEGATIVE); Mucus SLIGHT /HPF (NEGATIVE); Nitrite NEGATIVE (NEGATIVE); Protein,Urine Dip NEGATIVE (Negative); Specific Gravity 1.035 (1.005-1.025); Urobilinogen NEGATIVE mg/dL (0-1)
[2022-01-09 14:01] VITALS: BP 106/61; PULSE 101
[2022-01-09 17:17] VITALS: O2SAT 94
== END 2022-01-09 14:06 | disposition home or self-care (01) ==
LOC: ED 11:26
DX: E11.65 Type 2 diabetes mellitus with hyperglycemia (principal); N39.0 Urinary tract infection, site not specified; I10 Essential (primary) hypertension; J44.9 Chronic obstructive pulmonary disease, unspecified; Z79.4 Long term (current) use of insulin; Z79.899 Other long term (current) drug therapy
CPT/HCPCS: 36000; 36415; 80053; 81001; 82947; 84484; 85025; 87086; 96360; 96372; 96374; 99284; J1815

== ENCOUNTER 2023-03-15 06:41 | Emergency (ER) | payer MEDICARE, OTHER ==
[2023-03-15] MEDS ORDERED: MORPHINE SULFATE 4 MG INJ IV ONE (07:38)
[2023-03-15] MEDS ORDERED: Zofran 4 MG/2 ML VIAL IV ONE (07:38)
[2023-03-15] MEDS ORDERED: Sodium Chloride 0.9% 500 ML 500 ML IV ONE ×2 (07:39→07:44)
[2023-03-15] MEDS ORDERED: Zofran 4 MG/2 ML VIAL ONE (07:43)
[2023-03-15] MEDS ORDERED: MORPHINE SULFATE 4 MG INJ ONE (07:44)
--- NOTE | 2023-03-15 07:44 | ERPHSYRPT ---
- History of Present Illness Historian: patient Exam Limitations: no limitations Patient Subjective Stated Complaint: RUQ pain that radiates to the back, nausea, dry heaving Triage Nursing Assessment: pt presents to ED via wheelchair, pt transferred from bed to wheelchair by self with no assist, pt c/o RUQ pain that radiates to the back, pain woke patient up at 1730, last BM 03/14/23, pt diaphoretic and pale, dry heaving during triage. Timing/Duration: hour(s) (2), constant, sudden, worse Activities at Onset: sleep Quality: sharpness Abdominal Pain Onset Location: RUQ Pain Radiation: back Severity of Pain-Max: severe Severity of Pain-Current: moderate Modifying Factors: Improves With: nothing Associated Symptoms: nausea, No vomiting Previous symptoms: no prior history Hx Tetanus, Diphtheria Vaccination/Date Given: No Hx Influenza Vaccination/Date Given: No Hx Pneumococcal Vaccination/Date Given: No Immunizations Up to Date: No <MARLY HERNANDEZ - Last Filed: 03/15/23 07:39> <ARINA MIRANDA - Last Filed: 03/15/23 14:02> - History of Present Illness Time Seen by Provider: 03/15/23 07:00 Physician History: 57-year-old morbidly obese female with history of atrial fibrillation on Eliquis, diabetes mellitus, hypertension, hyperlipidemia presented in the ER with chief complaint of right upper quadrant pain waking up from sleep with radiation to the back moderate to severe sharp without any significant aggravating or relieving factors. Reports associated nausea and dry heaving. No fever or chills reported. (MARLY HERNANDEZ) Allergies/Adverse Reactions: certolizumab pegol [From Cimzia] Allergy (Verified 03/15/23 07:02) Penicillins Allergy (Verified 03/15/23 07:02) Home Medications: Furosemide 20 mg [Lasix 20 mg] 20 mg PO DAILY 11/07/18 [History] Metformin HCl Xr 500 mg [Glucophage XR 500 MG] 500 mg PO BID 11/07/18 [History] Potassium Chloride [Klor-Con M20] 10 meq PO DAILY 11/07/18 [History] Escitalopram Oxalate [Lexapro] 20 mg PO DAILY 01/03/21 [History] Folic Acid 1 mg [Folate 1 mg] 1 mg PO DAILY 01/03/21 [History] Lisinopril/Hydrochlorothiazide [Lisinopril-Hctz 10-12.5 mg Tab] 1 tab PO DAILY 01/03/21 [History] Insulin Detemir [Levemir] 10 unit SQ DAILY 01/09/22 [History] Insulin Glargine,Hum.rec.anlog [Jenniferaglcong [place] U-100] 1 unit SQ UD 01/09/22 [History] Travel Risk - International Travel Have you traveled outside of the country in past 3 weeks: No - Coronavirus Screening Are you exhibiting any of the following symptoms?: No Close contact with a COVID-19 positive Pt in past 14-21 Days: No - Vaccine Status Have you recieved a Covid-19 vaccination: No <MARLY HERNANDEZ - Last Filed: 03/15/23 07:39> - Review of Systems Constitutional: No Symptoms Eyes: No Symptoms Ears, Nose, & Throat: No Symptoms Respiratory: No Symptoms Cardiac: No Symptoms Abdominal/Gastrointestinal: Abdominal Pain, Nausea Genitourinary Symptoms: No Symptoms Musculoskeletal: No Symptoms Skin: No Symptoms Neurological: No Symptoms Psychological: No Symptoms Hematologic/Lymphatic: No Symptoms Immunological/Allergic: No Symptoms <MARLY HERNANDEZ - Last Filed: 03/15/23 07:39> - Past Medical History Pertinent Past Medical History: Yes Neurological History: Migraines Cardiac History: Hypertension Respiratory History: COPD Endocrine Medical History: Diabetes Type II Musculoskeletal History: Other History: Other Other Medical History: TYPE II NIDDM X 6 MOS, PSORIASIS - Past Surgical History Past Surgical History: Yes Respiratory: Lobectomy Genitourinary: Other Musculoskeletal: No Pertinent History Female Surgical History: Hysterectomy, Dilation & Curettage, Tubal Ligation Other Surgical History: kidney stones with stent placement - Social History Smoking Status: Former smoker Exposure to second hand smoke: No Drug Use: none Patient Lives Alone: No Significant Family History: no pertinent family hx <MARLY HERNANDEZ - Last Filed: 03/15/23 07:39> - Physical Exam General Appearance: no apparent distress, alert Eye Exam: PERRL/EOMI Ears, Nose, Throat Exam: normal ENT inspection, TMs normal Neck Exam: normal inspection, non-tender, supple, full range of motion Respiratory Exam: normal breath sounds, lungs clear Cardiovascular Exam: regular rate/rhythm, normal heart sounds Gastrointestinal/Abdomen Exam: soft, normal bowel sounds, tenderness (Right upper quadrant/flank), guarding Back Exam: normal inspection, normal range of motion Extremity Exam: normal inspection, normal range of motion Neurologic Exam: alert, oriented x 3, cooperative Skin Exam: normal color SpO2 Interpretation: normal SpO2: 93 O2 Delivery: Room Air <MARLY HERNANDEZ - Last Filed: 03/15/23 07:39> - Nursing Vital Signs Nursing Vital Signs: Initial Vital Signs Temperature 97.5 F 03/15/23 06:58 Pulse Rate 83 03/15/23 06:58 Respiratory Rate 18 03/15/23 06:58 Blood Pressure 169/76 03/15/23 06:58 O2 Sat by Pulse Oximetry 93 L 03/15/23 06:58 Pain Scale Pain Intensity 3 Ordered Tests: Active Orders 24 hr Category Date Time Status IV Insertion STAT Care 03/15/23 07:38 Active NPO (ED) STAT Care 03/15/23 07:38 Active ABDOMEN AND PELVIS W/0 CONTRAS [CT] Stat Exams 03/15/23 07:38 Completed AMYLASE Stat Lab 03/15/23 07:58 Completed CBC W DIFF Stat Lab 03/15/23 07:58 Completed CMP Stat Lab 03/15/23 07:58 Completed CULTURE,URINE Stat Lab 03/15/23 09:11 Received LIPASE Stat Lab 03/15/23 07:58 Completed TROPONIN Q4H Lab 03/15/23 07:58 Completed TROPONIN Q4H Lab 03/15/23 11:25 Completed TROPONIN Q4H Lab 03/15/23 15:45 Ordered UA W/RFX UR CULTURE Stat Lab 03/15/23 09:11 Completed Medication Summary Discontinued Medications Generic Name Dose Route Start Last Admin Trade Name Freq PRN Reason Stop Dose Admin Hydromorphone HCl 1 mg 03/15/23 09:36 03/15/23 09:38 Hydromorphone 1 Mg/1ml Inj IV 03/15/23 09:37 1 mg STAT ONE Administration Hydromorphone HCl Confirm 03/15/23 09:38 Hydromorphone 1 Mg/1ml Inj Administered 03/15/23 09:39 Dose 1 mg .ROUTE .STK-MED ONE Hydromorphone HCl 0.5 mg 03/15/23 12:19 03/15/23 12:46 Hydromorphone 1 Mg/1ml Inj IV 03/15/23 12:20 0.5 mg STAT ONE Administration Hydromorphone HCl Confirm 03/15/23 12:43 Hydromorphone 1 Mg/1ml Inj Administered 03/15/23 12:44 Dose 1 mg .ROUTE .STK-MED ONE Sodium Chloride 500 mls @ 500 mls/hr 03/15/23 07:39 03/15/23 09:07 Sodium Chloride 0.9% 500 Ml IV 03/15/23 08:38 Infused .Q1H ONE Infusion Sodium Chloride Confirm 03/15/23 07:44 Sodium Chloride 0.9% 500 Ml Administered 03/15/23 07:45 Dose 500 mls @ ud IV .STK-MED ONE Levofloxacin/Dextrose 500 mg in 100 mls @ 100 mls/hr 03/15/23 09:17 03/15/23 10:45 Levofloxacin 500mg/100ml D5w IV 03/15/23 10:16 Infused STAT STA Infusion Levofloxacin/Dextrose Confirm 03/15/23 09:36 Levofloxacin 500mg/100ml D5w Administered 03/15/23 09:37 Dose 500 mg in 100 mls @ ud IV .STK-MED ONE Morphine Sulfate 4 mg 03/15/23 07:38 03/15/23 07:49 Morphine Sulfate 4 Mg/Ml Injection IV 03/15/23 07:39 4 mg STAT ONE Administration Morphine Sulfate Confirm 03/15/23 07:44 Morphine Sulfate 4 Mg/Ml Injection Administered 03/15/23 07:45 Dose 4 mg .ROUTE .STK-MED ONE Ondansetron HCl 4 mg 03/15/23 07:38 03/15/23 07:46 Ondansetron Hcl 4 Mg/2 Ml Vial IV 03/15/23 07:39 4 mg STAT ONE Administration Ondansetron HCl Confirm 03/15/23 07:43 Ondansetron Hcl 4 Mg/2 Ml Vial Administered 03/15/23 07:44 Dose 4 mg .ROUTE .STK-MED ONE Lab/Rad Data: Laboratory Result Diagrams 03/15/23 07:58 03/15/23 07:58 Laboratory Results 03/15/23 03/15/23 03/15/23 Range/Units 11:25 09:11 07:58 WBC (4.0-10.5) x10^3/uL RBC (4.1-5.4) x10^6/uL Hgb (12.0-16.0) g/dL Hct (35-47) % MCV (78-100) fL MCH (26-32) pg MCHC (32-36) g/dL RDW (11.5-14.0) % Plt Count (150-450) x10^3/uL MPV (7.5-11.0) fL Gran % (36.0-66.0) % Immature Gran % (Auto) (0.00-0.4) % Nucleat RBC Rel Count (0.00-0.1) % Eos # (Auto) (0-0.5) x10^3/uL Immature Gran # (Auto) (0.00-0.03) x10^3u/L Absolute Lymphs (auto) (1.0-4.6) x10^3/uL Absolute Monos (auto) (0.0-1.3) x10^3/uL Absolute Nucleated RBC (0.00-0.01) x10^3u/L Lymphocytes % (24.0-44.0) % Monocytes % (0.0-12.0) % Eosinophils % (0.00-5.0) % Basophils % (0.0-0.4) % Absolute Granulocytes (1.4-6.9) x10^3/uL Basophils # (0-0.4) x10^3/uL Sodium (137-145) mmol/L Potassium (3.5-5.1) mmol/L Chloride (98-107) mmol/L Carbon Dioxide (22-30) mmol/L Anion Gap (5-15) MEQ/L BUN (7-17) mg/dL Creatinine (0.52-1.04) mg/dL Estimated GFR ML/MIN Glucose (74-106) mg/dL Calcium (8.4-10.2) mg/dL Total Bilirubin (0.2-1.3) mg/dL AST (14-36) U/L ALT (0-35) U/L Alkaline Phosphatase (38-126) U/L Troponin I < 0.012 < 0.012 (0.000-0.034) ng/mL Serum Total Protein (6.3-8.2) g/dL Albumin (3.5-5.0) g/dL Amylase (30-110) U/L Lipase (23-300) U/L Urine Color Yellow (Yellow) Urine Appearance Cloudy A (Clear) Urine pH 5.5 (4.6-8.0) Ur Specific [place] 1.025 (1.005-1.030) Urine Protein Negative (Negative) Urine Glucose (UA) Negative (Negative) mg/dL Urine Ketones Negative (Negative) Urine Blood Negative (Negative) Urine Nitrite Positive A (Negative) Urine Bilirubin Negative (Negative) Urine Urobilinogen 0.2 (0.2) mg/dL Ur Leukocyte Esterase Small A (Negative) U Hyaline Cast (Auto) NONE SEEN (0-2) /LPF Urine Microscopic RBC 0-2 (0-5) /HPF Urine Microscopic WBC 11-20 A (0-5) /HPF Ur Epithelial Cells Few (None Seen) /HPF Urine Bacteria Many A (None Seen) /HPF Urine Culture Reflexed YES (NO) 03/15/23 03/15/23 Range/Units 07:58 07:58 WBC 13.3 H (4.0-10.5) x10^3/uL RBC 4.51 (4.1-5.4) x10^6/uL Hgb 13.2 (12.0-16.0) g/dL Hct 41.2 (35-47) % MCV 91.4 (78-100) fL MCH 29.3 (26-32) pg MCHC 32.0 (32-36) g/dL RDW 14.2 H (11.5-14.0) % Plt Count 345 (150-450) x10^3/uL MPV 9.9 (7.5-11.0) fL Gran % 61.1 (36.0-66.0) % Immature Gran % (Auto) 1.3 H (0.00-0.4) % Nucleat RBC Rel Count 0.0 (0.00-0.1) % Eos # (Auto) 0.56 H (0-0.5) x10^3/uL Immature Gran # (Auto) 0.17 H (0.00-0.03) x10^3u/L Absolute Lymphs (auto) 3.24 (1.0-4.6) x10^3/uL Absolute Monos (auto) 1.10 (0.0-1.3) x10^3/uL Absolute Nucleated RBC 0.00 (0.00-0.01) x10^3u/L Lymphocytes % 24.4 (24.0-44.0) % Monocytes % 8.3 (0.0-12.0) % Eosinophils % 4.2 (0.00-5.0) % Basophils % 0.7 (0.0-0.4) % Absolute Granulocytes 8.10 H (1.4-6.9) x10^3/uL Basophils # 0.09 (0-0.4) x10^3/uL Sodium 140 (137-145) mmol/L Potassium 4.1 (3.5-5.1) mmol/L Chloride 103 (98-107) mmol/L Carbon Dioxide 29 (22-30) mmol/L Anion Gap 11.8 (5-15) MEQ/L BUN 25 H (7-17) mg/dL Creatinine 0.74 (0.52-1.04) mg/dL Estimated GFR > 60.0 ML/MIN Glucose 214 H (74-106) mg/dL Calcium 8.2 L (8.4-10.2) mg/dL Total Bilirubin 0.30 (0.2-1.3) mg/dL AST 22 (14-36) U/L ALT 21 (0-35) U/L Alkaline Phosphatase 102 (38-126) U/L Troponin I (0.000-0.034) ng/mL Serum Total Protein 6.9 (6.3-8.2) g/dL Albumin 3.7 (3.5-5.0) g/dL Amylase 46 (30-110) U/L Lipase 83 (23-300) U/L Urine Color (Yellow) Urine Appearance (Clear) Urine pH (4.6-8.0) Ur Specific [place] (1.005-1.030) Urine Protein (Negative) Urine Glucose (UA) (Negative) mg/dL Urine Ketones (Negative) Urine Blood (Negative) Urine Nitrite (Negative) Urine Bilirubin (Negative) Urine Urobilinogen (0.2) mg/dL Ur Leukocyte Esterase (Negative) U Hyaline Cast (Auto) (0-2) /LPF Urine Microscopic RBC (0-5) /HPF Urine Microscopic WBC (0-5) /HPF Ur Epithelial Cells (None Seen) /HPF Urine Bacteria (None Seen) /HPF Urine Culture Reflexed (NO) <MARLY HERNANDEZ - Last Filed: 03/15/23 07:39> - Progress Counseled pt/family regarding: lab results, diagnosis, rad results <ARINA MIRANDA - Last Filed: 03/15/23 14:02> - Progress Progress Note: 03/15/23 07:58 57-year-old with atrial fibrillation on Eliquis, diabetes mellitus, hypertension is evaluated for sudden onset upper abdominal pain on the right side with radiation/wrapping around to the back moderate to severe sharp. Patient has tenderness in the right upper quadrant on exam with positive Friedman sign. She is given fluids and symptomatic treatment, will obtain CT abdomen pelvis. Care is transferred to Dr. Miranda at shift change at 8:00. (MARLY HERNANDEZ) 03/15/23 09:19 CAT scan of the abdomen pelvis without contrast shows a prominent appendix with minimal periappendiceal stranding. Rule out acute appendicitis. She also has multiple gallstones present with the largest being 2.3 cm in the neck of the gallbladder. She has a moderate fatty containing ventral hernia. Patient last ate something at 1 AM and drank a soda at 4 AM. 03/15/23 12:34 We just received phone call from Dr. Weinstein the general surgeon who we have tried to contact with the in the last couple of hours. He said his student to evaluate this patient and to provide him with information. I never spoke to But report provided by phone to our emergency room nurse states that he feels this patient is too high risk for surgical intervention at this facility. He recommends contacting [facility]. 03/15/23 12:35 Patient's medical issue is 1 of high complexity given the patient's multiple medical issues including atrial fibrillation, diabetes and hypertension as well as obesity. She is also on Eliquis. She will require general surgery consultation and possible intervention. 03/15/23 13:[address] Goetz who is a general surgeon at [facility]. He declines acceptance and transfer to their facility given the patient's medical issues including morbid obesity. 03/15/23 14:[address] Moe who is a general surgeon at [facility]. I reviewed the patient's history, physical findings, results of her laboratory work-up and results of the CAT scan of the abdomen and pelvis without contrast. She accepts the patient to be transferred emergency room to emergency room. Patient was told that further work-up would be performed and she might be transferred there and not be operated on depending on the results of their work- up. Patient voices understanding. (ARINA MIRANDA) Medical Desision Making - Discussion of managment Care discussed with:: specialist (General surgeon Dr. Weinstein) Reviewed:: Test results, Need for additional workup - Diagnostic Testing Diagnostic test were ordered, analyzed, and reviewed by me: Yes Radiological Interpretation: Reviewed by me, Teleradiologist Report - Risk of complications The pt has a high risk of morbidity or mortality based on: Decision regarding hospitilization or escalation of hosp level of care <ARINA MIRANDA - Last Filed: 03/15/23 14:02> <MARLY HERNANDEZ - Last Filed: 03/15/23 07:39> - Departure Departure Disposition: Transfer Critical Care Time: No <ARINA MIRANDA - Last Filed: 03/15/23 14:02> - Departure Clinical Impression: Acute appendicitis, Cholelithiasis Condition: Stable Referrals: NUSRAT HOANG SAMPLE TAILOR [Primary Care Provider] - Follow up/PCP as directed
[2023-03-15 08:23] LABS: BASOPHIL % 0.7 % (0.0-0.4); Basophil (Absolute #) 0.09 x10^3/uL (0-0.4); Eosinophil % 4.2 % (0.00-5.0); Eosinophil (Absolute #) 0.56 x10^3/uL (0-0.5); Hematocrit 41.2 % (35-47); Hemoglobin 13.2 g/dL (12.0-16.0); IMMATURE GRAN # 0.17 x10^3u/L (0.00-0.03); IMMATURE GRAN % 1.3 % (0.00-0.4); Lymphocyte (Absolute #) 3.24 x10^3/uL (1.0-4.6); Lymphocytes % 24.4 % (24.0-44.0); Mean Cell Volume 91.4 fL (78-100); Mean Corpuscular Hemoglobin 29.3 pg (26-32); Mean Platelet Volume 9.9 fL (7.5-11.0); Monocytes % 8.3 % (0.0-12.0); Neutrophil % 61.1 % (36.0-66.0); Platelet Count 345 x10^3/uL (150-450); Red Blood Count 4.51 x10^6/uL (4.1-5.4); Red Cell Distribution Width 14.2 % (11.5-14.0); White Blood Count 13.3 x10^3/uL (4.0-10.5)
[2023-03-15 08:41] LABS: ALBUMIN 3.7 g/dL (3.5-5.0); ALKALINE PHOSPHATASE 102 U/L (38-126); AMYLASE 46 U/L (30-110); ANION GAP 11.8 MEQ/L (5-15); BLOOD UREA NITROGEN 25 mg/dL (7-17); CHLORIDE 103 mmol/L (98-107); Calcium 8.2 mg/dL (8.4-10.2); Carbon Dioxide 29 mmol/L (22-30); Creatinine 1 0.74 mg/dL (0.52-1.04); EST GLOMERULAR FILTRATION RATE > 60.0 ML/MIN; Glucose 214 mg/dL (74-106); LIPASE 83 U/L (23-300); Potassium 4.1 mmol/L (3.5-5.1); SGOT/AST 22 U/L (14-36); SGPT/ALT 21 U/L (0-35); SODIUM 140 mmol/L (137-145); Total Protein 6.9 g/dL (6.3-8.2)
--- NOTE | 2023-03-15 09:01 | XRAY ---
Indication: Stomach and back pain. Multiple contiguous axial images obtained through the abdomen and pelvis without contrast. Comparison: None Lung bases degraded by respiration. Mild bibasilar subsegmental atelectasis/scarring. Heart is enlarged. Incidental mild left hemidiaphragm elevation. Noncontrasted stomach and bowel loops appear nonobstructed. Prominent appendix with base of the appendix up to 1.2 cm diameter with minimal periappendiceal stranding concerning for mild/early appendicitis. Scattered sigmoid diverticulosis without diverticulitis. Gallbladder demonstrates multiple stones, largest 2.3 cm in the neck of the gallbladder. No pericholecystic fluid or intrahepatic biliary distention. 21.2 cm fatty hepatomegaly. Previous hysterectomy. No free fluid/air. Remaining liver, gallbladder, pancreas, spleen, adrenal glands, kidneys, ureters, and bladder are unremarkable for noncontrast exam. Minimal aortic calcifications without AAA. Osseous structures intact with mild degenerative changes throughout the visualized thoracolumbar spine. 5-6 mm anterolisthesis L5 on S1. Moderate-sized left supraumbilical fatty ventral hernia. Impression: 1. Prominent appendix with minimal periappendiceal stranding. Rule out mild/early appendicitis. 2. Multiple gallstones largest 2.3 cm in the neck of the gallbladder. 3. Incidental cardiomegaly, fatty hepatomegaly, minimal arteriosclerotic disease, multilevel degenerative spondylosis with minimal grade 1 L5 listhesis, and moderate fatty ventral hernia.
[2023-03-15] MEDS ORDERED: Levofloxacin 500MG/100ML D5W 500 MG/100 ML BAG IV STA (09:17)
[2023-03-15] MEDS ORDERED: Hydromorphone 1 mg/ml Injection IV ONE ×3 (09:36→14:01)
[2023-03-15] MEDS ORDERED: Levofloxacin 500MG/100ML D5W 500 MG/100 ML BAG IV ONE (09:36)
[2023-03-15] MEDS ORDERED: Hydromorphone 1 mg/ml Injection ONE ×3 (09:38→14:08)
[2023-03-15 09:39] LABS: Appearance Cloudy (Clear); Bacteria Many /HPF (None Seen); Bilirubin Negative (Negative); Blood Negative (Negative); Epithelial Cells Few /HPF (None Seen); Glucose, Urine Negative (Negative); Hyaline Casts NONE SEEN /LPF (0-2); Ketones Negative (Negative); Leukocyte Esterase Small (Negative); Nitrite Positive (Negative); Ph 5.5 (4.6-8.0); Protein,Urine Dip Negative (Negative); RBC 0-2 /HPF (0-5); Specific Gravity 1.025 (1.005-1.030); Urobilinogen 0.2 mg/dL (0.2)
[2023-03-15 09:41] LABS: ADD URINE CULTURE? YES (NO)
[2023-03-15 13:26] VITALS: O2SAT 94
[2023-03-15 13:55] VITALS: BP 151/76; PULSE 79
--- NOTE | 2023-03-16 09:21 | CONS ---
CONSULT DATE: 03/15/2023 HISTORY: This patient is seen for Dr. Rm Murphy who is semiconductor processing group leader for our group today. As I was here doing some outpatient cases, he asked that I stop by and take a look at the patient for him. The patient is seen with medical study Inna Flores. She has right sided pain right upper quadrant during the night/early a.m. She came in. She had belching. CT scan today shows stones with one in the neck and some distention of her appendix with some minimal induration on it. She is not having any right lower quadrant pain. She complains of right upper quadrant pain. PAST MEDICAL HISTORY: She had pericardial effusion. She had pericardial window. She had infection and what sounds like part of her lung removed whether decortication or not is unclear. She has some obesity, psoriasis, diabetes mellitus type II, chronic obstructive pulmonary disease, hypertension, migraines. She has a little bit of a fatty hernia from a past surgery as well. PAST SURGICAL HISTORY: As mentioned above, had part of her lung removed, pericardial window, had D&C, tubal ligation and hysterectomy in the past. Kidney stones with stent in the past. HOME MEDICATIONS: Furosemide, metformin, potassium chloride, Lexapro, folic acid, lisinopril, Levemir, Basaglar. She also had been on some Eliquis apparently. ALLERGIES: PENICILLIN. CERTOLIZUMAB PEGOL. FAMILY HISTORY: Negative in regards to this problem. SOCIAL HISTORY: Former smoker. REVIEW OF SYSTEMS: Fourteen systems reviewed per admission assessment pertinent noted above. She has significant chronic lung disease and told by her director safety council might have trouble getting off a vent if she had surgery. Other systems negative or noncontributory as above and per preadmission questionnaire. LAB DATA AND TESTS: White count 13, hemoglobin 13.2. Amylase, lipase and bilirubin were all okay. PHYSICAL EXAMINATION: She was afebrile in the emergency room. Blood pressure 133/75, pulse 88. Pulse ox 96%. GENERAL: A chronically ill female. HEENT: EOMI. Oropharynx mucous membranes moist. CHEST: Equal excursion. CVS: Regular rhythm and pulse. ABDOMEN: Obese. She has chronic ventral hernia but most of the tenderness in the right upper quadrant gallbladder area. No peritoneal signs. She is nontender. No rebound, no guarding over the right lower quadrant area. EXTREMITIES: No cyanosis. NEURO: Alert. PSYCH: Appropriate mood and affect. SKIN: Dry. IMPRESSION: A 57-year-old female although she has slightly distended appendix she is not having any pain or tenderness whatsoever in that area. She seems to be having acute cholecystitis/cholelithiasis. She has significant lung disease. Anesthesia here at [facility] is not willing to keep her to provide anesthesia given her significant heart and lung disease and multiple medical problems. Therefore Dr. Murphy is on for our group and I am seeing the patient for him. Instructed the emergency room physician that she would need to be sent up to [facility] where her director safety council is and later check with the office to see if Dr. Murphy wanted to follow her from his standpoint versus having acute care surgeon follow her. She likely will be in the hospital for some time. She needs pulmonary and cardiology included in her care. I think Dr. Arrington is her registrar museum. Again, I had seen this patient in the emergency room for Dr. Murphy. She is not a candidate to be done here and will send her to [facility] for patient's director safety council and registrar museum for further care. I will sign off at this time.
== END 2023-03-15 14:20 | disposition short-term general hospital (02) ==
LOC: ED 06:41
DX: K35.80 Unspecified acute appendicitis (principal); K80.20 Calculus of gallbladder without cholecystitis without obstruction; R10.11 Right upper quadrant pain; R11.2 Nausea with vomiting, unspecified; I10 Essential (primary) hypertension; E78.5 Hyperlipidemia, unspecified; E11.9 Type 2 diabetes mellitus without complications; Z79.01 Long term (current) use of anticoagulants; Z79.84 Long term (current) use of oral hypoglycemic drugs; Z79.4 Long term (current) use of insulin; Z79.899 Other long term (current) drug therapy; Z28.310 Unvaccinated for COVID-19
CPT/HCPCS: 36000; 36415; 74176; 80053; 81001; 82150; 83690; 84484; 85025; 87077; 87086; 87186; 96374; 96375; 96376; 99285; J1170; J1956; J2270; J2405

== ENCOUNTER 2023-08-15 20:39 | Emergency (ER) | payer MEDICARE ==
[2023-08-15] MEDS ORDERED: XYLOCAINE 1% HCL 20 ML MDV ONE (21:05)
[2023-08-15] MEDS ORDERED: Adacel Vial IM ONE ×2 (21:24→21:28)
--- NOTE | 2023-08-15 21:27 | ERPHSYRPT ---
- History of Present Illness Time Seen by Provider: 08/15/23 21:02 Source: patient Exam Limitations: no limitations Physician History: 58 years old right-handed dominant female with history of paroxysmal atrial fibrillation on Eliquis presented in the ER with chief complaint of left hand laceration at second metacarpophalangeal joint laterally. Patient accidentally hit against a piece of glass at home. Complaining of mild dull aching pain with movements at metacarpophalangeal joint. No numbness or tingling in the fingertips are any difficulty movements. Patient has slow oozing left hand second metacarpophalangeal joint area on the lateral aspect. No active spurting. Intact range of motion at metacarpophalangeal and interphalangeal joints. Distal neurovascular intact. I do not see any obvious tendon laceration, has 3 cm laceration in length. Under local anesthesia laceration is repaired. It was a clean cut, do not think needs antibiotic. Recommended Tylenol and intermittent ice application, elevation and avoiding exertion. Outpatient follow-up. Discussed signs symptoms of worsening needing return to ER which she seems understanding. Allergies/Adverse Reactions: certolizumab pegol [From Cimzia] Allergy (Verified 08/15/23 21:25) Penicillins Allergy (Verified 08/15/23 21:25) Home Medications: Furosemide 20 mg [Lasix 20 mg] 20 mg PO DAILY 11/07/18 [History] Metformin HCl Xr 500 mg [Glucophage XR 500 MG] 500 mg PO BID 11/07/18 [History] Potassium Chloride [Klor-Con M20] 10 meq PO DAILY 11/07/18 [History] Escitalopram Oxalate [Lexapro] 20 mg PO DAILY 01/03/21 [History] Folic Acid 1 mg [Folate 1 mg] 1 mg PO DAILY 01/03/21 [History] Lisinopril/Hydrochlorothiazide [Lisinopril-Hctz 10-12.5 mg Tab] 1 tab PO DAILY 01/03/21 [History] Insulin Detemir [Levemir] 10 unit SQ DAILY 01/09/22 [History] Insulin Glargine,Hum.rec.anlog [Basaglar Kwikpen U-100] 1 unit SQ UD 01/09/22 [History] Hx Tetanus, Diphtheria Vaccination/Date Given: No Hx Influenza Vaccination/Date Given: No Hx Pneumococcal Vaccination/Date Given: No Travel Risk - Vaccine Status Have you recieved a Covid-19 vaccination: No - Review of Systems Constitutional: No Symptoms Ears, Nose, & Throat: No Symptoms Respiratory: No Symptoms Cardiac: No Symptoms Abdominal/Gastrointestinal: No Symptoms Musculoskeletal: Injury Skin: Skin Lesions Hematologic/Lymphatic: Easy Bleeding - Past Medical History Pertinent Past Medical History: Yes Neurological History: Migraines Cardiac History: Hypertension Respiratory History: COPD Endocrine Medical History: Diabetes Type II Musculoskeletal History: Other History: Other Other Medical History: TYPE II NIDDM X 6 MOS, PSORIASIS - Past Surgical History Past Surgical History: Yes Respiratory: Lobectomy Genitourinary: Other Musculoskeletal: No Pertinent History Female Surgical History: Hysterectomy, Dilation & Curettage, Tubal Ligation Other Surgical History: kidney stones with stent placement - Social History Smoking Status: Former smoker Exposure to second hand smoke: No Drug Use: none Patient Lives Alone: No Significant Family History: no pertinent family hx - Nursing Vital Signs Nursing Vital Signs: Initial Vital Signs O2 Sat by Pulse Oximetry 96 08/15/23 21:27 Pain Scale Pain Intensity 2 - Physical Exam General Appearance: no apparent distress, alert Eye Exam: PERRL/EOMI Neck Exam: normal inspection, full range of motion Respiratory Exam: normal breath sounds, lungs clear Cardiovascular Exam: regular rate/rhythm, normal heart sounds Extremity Exam: normal range of motion, other (3 cm laceration left hand lateral aspect second metacarpophalangeal joint with intact range of motion at metacarpophalangeal and interphalangeal joints.) Neurologic Exam: alert, oriented x 3, cooperative Skin Exam: normal color SpO2 Interpretation: normal SpO2: 96 O2 Delivery: Room Air Procedures - Laceration/Wound Repair Left Hand Time of Procedure: 21:05 Wound Location: Left, hand Wound Length (cm): 3 Wound's Depth, Shape: into muscle, linear Wound Explored: clean Irrigated: Yes Hibiclens Prep: Yes Anesthesia: 1% Lidocaine Volume Anesthetic (ccs): 8 Wound Repaired With: sutures Suture Size/Type: 4-0, ethilon Number of Sutures: 7 Sterile Dressing Applied?: Yes Splint Applied?: Yes Type of Splint Applied: Premade aluminum Ordered Tests: Medication Summary Discontinued Medications Generic Name Dose Route Start Last Admin Trade Name Bar PRN Reason Stop Dose Admin Diphtheria/Tetanus/Acell Pertussis 0.5 ml 08/15/23 21:24 08/15/23 21:29 Tdap --Diph,Pertuss(Acell),Tet Vac/Pf 0.5 Ml Vial IM 08/15/23 21:25 0.5 ml .ONCE ONE Administration Diphtheria/Tetanus/Acell Pertussis Confirm 08/15/23 21:28 Tdap --Diph,Pertuss(Acell),Tet Vac/Pf 0.5 Ml Vial Administered 08/15/23 21:29 Dose 0.5 ml IM .STK-MED ONE Lidocaine HCl Confirm 08/15/23 21:05 Lidocaine Hcl 1% 20 Ml Mdv 20 Ml Ml Administered 08/15/23 21:06 Dose 1 ml .ROUTE .STK-MED ONE - Progress Progress: improved Progress Note: 08/15/23 21:26 58 years old right-handed dominant female with history of paroxysmal atrial fibrillation on Eliquis presented in the ER with chief complaint of left hand laceration at second metacarpophalangeal joint laterally. Patient accidentally hit against a piece of glass at home. Complaining of mild dull aching pain with movements at metacarpophalangeal joint. No numbness or tingling in the fingertips are any difficulty movements. Patient has slow oozing left hand second metacarpophalangeal joint area on the lateral aspect. No active spurting. Intact range of motion at metacarpophalangeal and interphalangeal joints. Distal neurovascular intact. Tetanus is updated I do not see any obvious tendon laceration, has 3 cm laceration in length. Under local anesthesia laceration is repaired. It was a clean cut, do not think needs antibiotic. Recommended Tylenol and intermittent ice application, elevation and avoiding exertion. Outpatient follow-up. Discussed signs symptoms of worsening needing return to ER which she seems understanding. Counseled pt/family regarding: diagnosis, need for follow-up Medical Desision Making - Risk of complications The pt has a mod risk of morbidity or mortality based on: Need for minor surgical intervention in patient with know risk factors - Departure Departure Disposition: Home Clinical Impression: Hand laceration Condition: Stable Critical Care Time: No Referrals: NUSRAT HOANG NP [Primary Care Provider] - Follow up/PCP as directed Instructions: Laceration Repair With Stitches ED Additional Instructions: Take Tylenol as needed for pain. Intermittent ice application. Avoid exertional activities. Follow-up with primary care for reevaluation. Suture removal in 2 weeks. Return to ER for intractable pain swelling numbness in the finger, bluish discoloration of the fingers/discharge/fever chills etc.
[2023-08-15 22:11] VITALS: BP 105/70; PULSE 78; RESP 18
[2023-08-16 00:37] VITALS: O2SAT 96
== END 2023-08-15 22:36 | disposition home or self-care (01) ==
LOC: ED 20:39
DX: S61.412A Laceration without foreign body of left hand, initial encounter (principal); W22.8XXA Striking against or struck by other objects, initial encounter; W25.XXXA Contact with sharp glass, initial encounter; I10 Essential (primary) hypertension; E11.9 Type 2 diabetes mellitus without complications; Z79.4 Long term (current) use of insulin; Z79.84 Long term (current) use of oral hypoglycemic drugs; Z79.899 Other long term (current) drug therapy; Z28.310 Unvaccinated for COVID-19; Z23 Encounter for immunization
CPT/HCPCS: 12002; 90471; 90715; 99283

== ENCOUNTER 2025-07-20 15:27 | Emergency (ER) | payer MEDICARE ==
--- NOTE | 2025-07-20 15:45 | ERPHSYRPT ---
- History of Present Illness Time Seen by Provider: 07/20/25 15:45 Historian: patient Exam Limitations: no limitations, clinical condition Physician History: This is a morbidly obese 60-year-old white female patient arrives by private vehicle and is a patient Dr. Carroll with a complaint of vomiting and diarrhea. This patient states that she did not feel well last night. She stated that she felt as though a "truck had hit her". No other individuals that she has been around has similar symptoms. This morning, her symptoms worsened. For 2 hours, patient states that she "filled up the toilet" with watery liquid stool followed by multiple episodes of vomiting. She denies chest pain. She denies shortness of breath. Patient has a history of atrial fibrillation and is on Eliquis. There are no new medications. Patient has a history of diabetes, hypertension, hyperlipidemia, COPD and migraine headaches. Timing/Duration: yesterday, worse Quality: aching Abdominal Pain Onset Location: generalized abdomen Severity of Pain-Max: moderate Severity of Pain-Current: moderate Modifying Factors: Improves With: vomiting, other (Diarrhea) Associated Symptoms: diarrhea, loss of appetite, nausea, vomiting, weakness, No chest pain, No shortness of breath Previous symptoms: no prior history, no recent treatment Allergies/Adverse Reactions: certolizumab pegol [From Cimzia] Allergy (Verified 08/15/23 21:25) Penicillins Allergy (Verified 08/15/23 21:25) Home Medications: Metformin HCl Xr 500 mg [Glucophage XR 500 MG] 500 mg PO DAILY 11/07/18 [History] Potassium Chloride [Klor-Con M20] 10 meq PO DAILY 11/07/18 [History] Escitalopram Oxalate [Lexapro] 20 mg PO DAILY 01/03/21 [History] Folic Acid 1 mg [Folate 1 mg] 1 mg PO DAILY 01/03/21 [History] Lisinopril/Hydrochlorothiazide [Lisinopril-Hctz 10-12.5 mg Tab] 1 tab PO DAILY 01/03/21 [History] Insulin Detemir [Levemir] 10 unit SQ DAILY 01/09/22 [History] Insulin Glargine,Hum.rec.anlog [Basaglar Kwikpen U-100] 1 unit SQ UD 01/09/22 [History] Hx Tetanus, Diphtheria Vaccination/Date Given: No Hx Influenza Vaccination/Date Given: No Hx Pneumococcal Vaccination/Date Given: No Travel Risk - International Travel Have you traveled outside of the country in past 3 weeks: No - Emerging Infectious Disease Are you exhibiting symptoms associated with any current EIDs: Yes Symptoms: Abdominal Pain, Diarrhea, Vomitting - Review of Systems Constitutional: Weakness Eyes: No Symptoms Ears, Nose, & Throat: No Symptoms Respiratory: No Symptoms Cardiac: No Symptoms Abdominal/Gastrointestinal: Abdominal Pain, Nausea, Vomiting, Diarrhea, Appetite Changes Genitourinary Symptoms: No Symptoms Musculoskeletal: No Symptoms Skin: No Symptoms Neurological: No Symptoms Psychological: No Symptoms Endocrine: No Symptoms Hematologic/Lymphatic: No Symptoms Immunological/Allergic: No Symptoms All Other Systems: Reviewed and Negative - Past Medical History Pertinent Past Medical History: Yes Neurological History: Migraines Cardiac History: Hypertension Respiratory History: COPD Endocrine Medical History: Diabetes Type II Musculoskeletal History: Other History: Other Other Medical History: TYPE II NIDDM X 6 MOS, PSORIASIS - Past Surgical History Past Surgical History: Yes Respiratory: Lobectomy Genitourinary: Other Musculoskeletal: No Pertinent History Female Surgical History: Hysterectomy, Dilation & Curettage, Tubal Ligation Other Surgical History: kidney stones with stent placement Significant Family History: no pertinent family hx - Social History Smoking Status: Former smoker Exposure to second hand smoke: No Drug Use: none Patient Lives Alone: No - Nursing Vital Signs Nursing Vital Signs: Initial Vital Signs Temperature 98.2 F 07/20/25 15:27 Pulse Rate 132 H 07/20/25 15:27 Respiratory Rate 18 07/20/25 15:27 Blood Pressure 109/88 07/20/25 15:27 O2 Sat by Pulse Oximetry 99 07/20/25 15:27 Pain Scale Pain Intensity 0 - Physical Exam General Appearance: no apparent distress, alert, anxiety Ears, Nose, Throat Exam: normal ENT inspection, moist mucous membranes Neck Exam: normal inspection, non-tender, supple, full range of motion Respiratory Exam: normal breath sounds, lungs clear, airway intact, No chest tenderness, No respiratory distress Cardiovascular Exam: normal peripheral pulses, tachycardia Gastrointestinal/Abdomen Exam: soft, normal bowel sounds, tenderness (Generalized), guarding (Generalized) Pelvic Exam: not done Rectal Exam: not done Back Exam: normal inspection, normal range of motion, No CVA tenderness, No vertebral tenderness Extremity Exam: normal inspection, normal range of motion, pelvis stable Neurologic Exam: alert, oriented x 3, cooperative, life skills coordinator volunteer II-XII nml as tested, nml cerebellar function, nml station & gait, sensation nml Skin Exam: normal color, warm, dry Lymphatic Exam: No adenopathy SpO2 Interpretation: normal O2 Delivery: Room Air - Course Nursing assessment & vital signs reviewed: Yes EKG Interpreted by Me: RATE (126), Sinus Tach, NORMAL AXIS, NORMAL INTERVALS, NORMAL QRS, Other (The computer interpretation of this patient's twelve-lead EKG states ST elevation consider inferior injury. However I do not appreciate elevation in the inferior leads. QTc is 433.) Ordered Tests: Active Orders 24 hr Category Date Time Status EKG-ER Only STAT Care 07/20/25 15:54 Active IV Insertion STAT Care 07/20/25 15:54 Active ABDOMEN AND PELVIS W/0 CONTRAS [CT] Stat Exams 07/20/25 15:54 Completed AMYLASE Stat Lab 07/20/25 16:45 Completed CBC W DIFF Stat Lab 07/20/25 16:45 Completed CMP Stat Lab 07/20/25 16:45 Completed LIPASE Stat Lab 07/20/25 16:45 Completed Lactic Acid Stat Lab 07/20/25 15:54 Completed Lactic Acid Stat Lab 07/20/25 18:56 Received MAGNESIUM Stat Lab 07/20/25 16:45 Completed MONO SCREEN Stat Lab 07/20/25 16:45 Completed TROPONIN Q4H Lab 07/20/25 16:45 Completed TROPONIN Q4H Lab 07/20/25 20:15 Ordered TROPONIN Q4H Lab 07/21/25 00:15 Ordered UA W/RFX UR CULTURE Stat Lab 07/20/25 18:41 Completed Medication Summary Generic Name Dose Route Start Last Admin Trade Name Freq PRN Reason Stop Dose Admin Sodium Chloride 1,000 mls @ 999 mls/hr 07/20/25 18:31 07/20/25 18:38 Sodium Chloride 0.9% 1000 Ml IV 07/20/25 19:31 999 mls/hr .Q1H1M STA Administration Discontinued Medications Generic Name Dose Route Start Last Admin Trade Name Freq PRN Reason Stop Dose Admin Diphenhydramine HCl 25 mg 07/20/25 15:55 07/20/25 16:15 Diphenhydramine Hcl 50 Mg/Ml Vial IV 07/20/25 15:56 25 mg STAT ONE Administration Diphenhydramine HCl Confirm 07/20/25 16:10 Diphenhydramine Hcl 50 Mg/Ml Vial Administered 07/20/25 16:11 Dose 50 mg .ROUTE .STK-MED ONE Sodium Chloride 1,000 mls @ 999 mls/hr 07/20/25 15:54 07/20/25 17:16 Sodium Chloride 0.9% 1000 Ml IV 07/20/25 16:54 Infused .Q1H1M STA Infusion Sodium Chloride Confirm 07/20/25 16:10 Sodium Chloride 0.9% 1000 Ml Administered 07/20/25 16:11 Dose 1,000 mls @ ud .ROUTE .STK-MED ONE Sodium Chloride Confirm 07/20/25 18:38 Sodium Chloride 0.9% 1000 Ml Administered 07/20/25 18:39 Dose 1,000 mls @ ud .ROUTE .STK-MED ONE Levofloxacin 500 mg 07/20/25 19:07 Levofloxacin 500 Mg Tablet PO 07/20/25 19:08 STAT ONE Prochlorperazine Edisylate 5 mg 07/20/25 15:54 07/20/25 16:14 Prochlorperazine Edisylate 10 Mg/2 Ml Vial IV 07/20/25 15:55 5 mg STAT ONE Administration Prochlorperazine Edisylate Confirm 07/20/25 16:10 Prochlorperazine Edisylate 10 Mg/2 Ml Vial Administered 07/20/25 16:11 Dose 10 mg .ROUTE .STK-MED ONE Lab/Rad Data: Laboratory Result Diagrams 07/20/25 16:45 07/20/25 16:45 Laboratory Results 07/20/25 07/20/25 07/20/25 Range/Units 18:41 16:45 16:45 WBC (3.98-10.04) x10^3/uL RBC (3.93-5.22) x10^6/uL Hgb (11.2-15.7) g/dL Hct (34.1-44.9) % MCV (79.4-94.8) fL MCH (25.6-32.2) pg MCHC (32.2-35.5) g/dL RDW (11.7-14.4) % Plt Count (182-369) x10^3/uL MPV (9.4-12.3) fL Gran % (34.0-71.1) % Immature Gran % (Auto) (0.001-0.429) % Nucleat RBC Rel Count (0.00-0.2) % Eos # (Auto) (0.04-0.36) x10^3/uL Immature Gran # (Auto) (0.001-0.031) x10^3u/L Absolute Lymphs (auto) (1.18-3.74) x10^3/uL Absolute Monos (auto) (0.24-0.86) x10^3/uL Absolute Nucleated RBC (0.00-0.012) x10^3u/L Lymphocytes % (19.3-51.7) % Monocytes % (4.7-12.5) % Eosinophils % (0.7-5.8) % Basophils % (0.1-1.2) % Absolute Granulocytes (1.56-6.13) x10^3/uL Basophils # (0.01-0.08) x10^3/uL Sodium (135-145) mmol/L Potassium (3.5-5.1) mmol/L Chloride (98-107) mmol/L Carbon Dioxide (22-30) mmol/L Anion Gap (5-15) MEQ/L BUN (7-17) mg/dL Creatinine (0.52-1.04) mg/dL Estimated GFR ML/MIN Glucose (74-106) mg/dL Lactic Acid (0.4-2.0) Calcium (8.4-10.2) mg/dL Magnesium (1.6-2.3) mg/dL Total Bilirubin (0.2-1.3) mg/dL AST (14-36) U/L ALT (0-35) U/L Alkaline Phosphatase (38-126) U/L Troponin I < 0.012 (0.000-0.033) ng/mL Serum Total Protein (6.3-8.2) g/dL Albumin (3.5-5.0) g/dL Amylase (30-110) U/L Lipase (23-300) U/L Urine Color Yellow (Yellow) Urine Appearance Clear (Clear) Urine pH 5.0 (4.6-8.0) Ur Specific Fults 1.015 (1.005-1.030) Urine Protein Negative (Negative) Urine Glucose (UA) 100 A (Negative) mg/dL Urine Ketones 15 A (Negative) Urine Blood Negative (Negative) Urine Nitrite Negative (Negative) Urine Bilirubin Negative (Negative) Urine Urobilinogen 0.2 (0.2) mg/dL Ur Leukocyte Esterase Negative (Negative) U Hyaline Cast (Auto) 3-5 A (0-2) /LPF Urine Microscopic RBC 0-2 (0-5) /HPF Urine Microscopic WBC 0-2 (0-5) /HPF Ur Epithelial Cells Few (None Seen) /HPF Urine Bacteria None Seen (None Seen) /HPF Urine Culture Reflexed NO (NO) Monoscreen (NEGATIVE) Influenza Type A Ag NEGATIVE (NEGATIVE) Influenza Type B Ag NEGATIVE (NEGATIVE) RSV (PCR) NEGATIVE (NEGATIVE) SARS-CoV-2 (PCR) NEGATIVE (NEGATIVE) 07/20/25 07/20/25 07/20/25 Range/Units 16:45 16:45 16:45 WBC 18.2 H (3.98-10.04) x10^3/uL RBC 5.64 H (3.93-5.22) x10^6/uL Hgb 17.0 H (11.2-15.7) g/dL Hct 52.0 H (34.1-44.9) % MCV 92.2 (79.4-94.8) fL MCH 30.1 (25.6-32.2) pg MCHC 32.7 (32.2-35.5) g/dL RDW 13.2 (11.7-14.4) % Plt Count 366 (182-369) x10^3/uL MPV 10.2 (9.4-12.3) fL Gran % 85.5 H (34.0-71.1) % Immature Gran % (Auto) 0.6 H (0.001-0.429) % Nucleat RBC Rel Count 0.0 (0.00-0.2) % Eos # (Auto) 0.06 (0.04-0.36) x10^3/uL Immature Gran # (Auto) 0.11 H (0.001-0.031) x10^3u/L Absolute Lymphs (auto) 1.38 (1.18-3.74) x10^3/uL Absolute Monos (auto) 1.06 H (0.24-0.86) x10^3/uL Absolute Nucleated RBC 0.00 (0.00-0.012) x10^3u/L Lymphocytes % 7.6 L (19.3-51.7) % Monocytes % 5.8 (4.7-12.5) % Eosinophils % 0.3 L (0.7-5.8) % Basophils % 0.2 (0.1-1.2) % Absolute Granulocytes 15.53 H (1.56-6.13) x10^3/uL Basophils # 0.04 (0.01-0.08) x10^3/uL Sodium 136 (135-145) mmol/L Potassium 4.2 (3.5-5.1) mmol/L Chloride 106 (98-107) mmol/L Carbon Dioxide 18 L (22-30) mmol/L Anion Gap 15.8 H (5-15) MEQ/L BUN 16 (7-17) mg/dL Creatinine 0.63 (0.52-1.04) mg/dL Estimated GFR 101.5 ML/MIN Glucose 250 H (74-106) mg/dL Lactic Acid (0.4-2.0) Calcium 9.1 (8.4-10.2) mg/dL Magnesium 1.8 (1.6-2.3) mg/dL Total Bilirubin 0.40 (0.2-1.3) mg/dL AST 50 H (14-36) U/L ALT 25 (0-35) U/L Alkaline Phosphatase 132 H (38-126) U/L Troponin I (0.000-0.033) ng/mL Serum Total Protein 7.0 (6.3-8.2) g/dL Albumin 4.1 (3.5-5.0) g/dL Amylase 43 (30-110) U/L Lipase 56 (23-300) U/L Urine Color (Yellow) Urine Appearance (Clear) Urine pH (4.6-8.0) Ur Specific Fults (1.005-1.030) Urine Protein (Negative) Urine Glucose (UA) (Negative) mg/dL Urine Ketones (Negative) Urine Blood (Negative) Urine Nitrite (Negative) Urine Bilirubin (Negative) Urine Urobilinogen (0.2) mg/dL Ur Leukocyte Esterase (Negative) U Hyaline Cast (Auto) (0-2) /LPF Urine Microscopic RBC (0-5) /HPF Urine Microscopic WBC (0-5) /HPF Ur Epithelial Cells (None Seen) /HPF Urine Bacteria (None Seen) /HPF Urine Culture Reflexed (NO) Monoscreen NEGATIVE (NEGATIVE) Influenza Type A Ag (NEGATIVE) Influenza Type B Ag (NEGATIVE) RSV (PCR) (NEGATIVE) SARS-CoV-2 (PCR) (NEGATIVE) 07/20/25 Range/Units 15:54 WBC (3.98-10.04) x10^3/uL RBC (3.93-5.22) x10^6/uL Hgb (11.2-15.7) g/dL Hct (34.1-44.9) % MCV (79.4-94.8) fL MCH (25.6-32.2) pg MCHC (32.2-35.5) g/dL RDW (11.7-14.4) % Plt Count (182-369) x10^3/uL MPV (9.4-12.3) fL Gran % (34.0-71.1) % Immature Gran % (Auto) (0.001-0.429) % Nucleat RBC Rel Count (0.00-0.2) % Eos # (Auto) (0.04-0.36) x10^3/uL Immature Gran # (Auto) (0.001-0.031) x10^3u/L Absolute Lymphs (auto) (1.18-3.74) x10^3/uL Absolute Monos (auto) (0.24-0.86) x10^3/uL Absolute Nucleated RBC (0.00-0.012) x10^3u/L Lymphocytes % (19.3-51.7) % Monocytes % (4.7-12.5) % Eosinophils % (0.7-5.8) % Basophils % (0.1-1.2) % Absolute Granulocytes (1.56-6.13) x10^3/uL Basophils # (0.01-0.08) x10^3/uL Sodium (135-145) mmol/L Potassium (3.5-5.1) mmol/L Chloride (98-107) mmol/L Carbon Dioxide (22-30) mmol/L Anion Gap (5-15) MEQ/L BUN (7-17) mg/dL Creatinine (0.52-1.04) mg/dL Estimated GFR ML/MIN Glucose (74-106) mg/dL Lactic Acid 1.9 (0.4-2.0) Calcium (8.4-10.2) mg/dL Magnesium (1.6-2.3) mg/dL Total Bilirubin (0.2-1.3) mg/dL AST (14-36) U/L ALT (0-35) U/L Alkaline Phosphatase (38-126) U/L Troponin I (0.000-0.033) ng/mL Serum Total Protein (6.3-8.2) g/dL Albumin (3.5-5.0) g/dL Amylase (30-110) U/L Lipase (23-300) U/L Urine Color (Yellow) Urine Appearance (Clear) Urine pH (4.6-8.0) Ur Specific Fults (1.005-1.030) Urine Protein (Negative) Urine Glucose (UA) (Negative) mg/dL Urine Ketones (Negative) Urine Blood (Negative) Urine Nitrite (Negative) Urine Bilirubin (Negative) Urine Urobilinogen (0.2) mg/dL Ur Leukocyte Esterase (Negative) U Hyaline Cast (Auto) (0-2) /LPF Urine Microscopic RBC (0-5) /HPF Urine Microscopic WBC (0-5) /HPF Ur Epithelial Cells (None Seen) /HPF Urine Bacteria (None Seen) /HPF Urine Culture Reflexed (NO) Monoscreen (NEGATIVE) Influenza Type A Ag (NEGATIVE) Influenza Type B Ag (NEGATIVE) RSV (PCR) (NEGATIVE) SARS-CoV-2 (PCR) (NEGATIVE) - Progress Progress: improved, re-examined Progress Note: 07/20/25 16:01 My medical decision making and the assignment of at least moderate complexity of this patient's medical issue today is based on review of the patient's past medical history, review of the patient's medication list, review the patient drug allergy list, history present illness and physical findings on examination the workup in this patient includes placement of intravenous line, infusion of crystalloid solution, antiemetics, CBC, CMP, amylase, lipase, urinalysis, viral swabs, CT scan of the abdomen pelvis without contrast and a twelve-lead EKG Differential diagnosis includes but is not limited to viral illness, pancreatitis, acute intra-abdominal/intrapelvic abnormality, bowel obstruction, myocardial infarction, arrhythmia, electrolyte abnormality, dehydration, urinary tract infection 07/20/25 18:38 I interpreted the patient's laboratory data results. Based on laboratory data results, the patient does have a significant leukocytosis with left shift. No other acute emergent findings. The patient has yet to provide us with a urine specimen to perform a urinalysis. We we will provide the patient with an additional liter of crystalloid solution. CT scan of the abdomen and pelvis was interpreted by the radiologist and I reviewed the impression. The impression states new urinary bladder air bubbles either iatrogenic versus gas-forming infection. Chronic findings of cardiomegaly, hepatomegaly and sigmoid diverticulosis without diverticulitis. 07/20/25 19:13 I will treat this patient based on the clinical impression of emphysematous cystitis. The patient has a significant leukocytosis, is diabetic, and was very symptomatic. She has no history of recent instrumentation of her urinary bladder bladder. The antibiotic regimen used will cover and treat gas-forming infection. Counseled pt/family regarding: lab results, diagnosis, rad results Medical Desision Making - Independent Historian Additional History obtained from: Spouse - Diagnostic Testing Diagnostic test were ordered, analyzed, and reviewed by me: Yes Radiological Interpretation: Reviewed by me, Teleradiologist Report - Risk of complications Low Risk: Low risk of morbidity from additional dx testing or treatment The pt has a mod risk of morbidity or mortality based on: Need for prescription drug management - Departure Departure Disposition: Home Clinical Impression: Leukocytosis, Vomiting, Emphysematous cystitis Condition: Stable Critical Care Time: No Referrals: PRAVEENA CARROLL MD [Primary Care Provider, [facility]] - Follow up/PCP as directed Additional Instructions: Drink plenty of clear liquids. Monitor your blood sugar closely. Take your antibiotics and other medications as prescribed. Return to the emergency department if your symptoms worsen. Call your primary care provider on 07/23/2025, to make arrangements for follow-up appointment for further evaluation and management. Prescriptions: Promethazine HCl 25 mg [Phenergan 25 mg] 25 mg PO Q8H PRN PRN #10 tablet PRN Reason: Nausea/Vomiting Ciprofloxacin [Cipro 500 MG] 500 mg PO BID #14 tablet
[2025-07-20 15:47] VITALS: TEMP 98.2
[2025-07-20] MEDS ORDERED: BENADRYL 50 MG/ML ONE (16:10)
[2025-07-20] MEDS ORDERED: Compazine 10 MG/2 ML ONE (16:10)
[2025-07-20] MEDS: Compazine 10 MG/2 ML IV ONE (16:14)
[2025-07-20] MEDS: BENADRYL 50 MG/ML IV ONE (16:15)
[2025-07-20 16:52] LABS: BASOPHIL % 0.2 % (0.1-1.2); Basophil (Absolute #) 0.04 x10^3/uL (0.01-0.08); Eosinophil (Absolute #) 0.06 x10^3/uL (0.04-0.36); Hematocrit 52.0 % (34.1-44.9); Hemoglobin 17.0 g/dL (11.2-15.7); IMMATURE GRAN # 0.11 x10^3u/L (0.001-0.031); IMMATURE GRAN % 0.6 % (0.001-0.429); Lymphocyte (Absolute #) 1.38 x10^3/uL (1.18-3.74); Mean Corpuscular Hemoglobin 30.1 pg (25.6-32.2); Mean Corpuscular Hgb Concent. 32.7 g/dL (32.2-35.5); Monocyte (Absolute #) 1.06 x10^3/uL (0.24-0.86); NUCLEATED RBC # 0.00 x10^3u/L (0.00-0.012); NUCLEATED RBC % 0.0 % (0.00-0.2); Platelet Count 366 x10^3/uL (182-369); Red Blood Count 5.64 x10^6/uL (3.93-5.22); White Blood Count 18.2 x10^3/uL (3.98-10.04)
[2025-07-20 17:07] LABS: Calcium 9.1 mg/dL (8.4-10.2); Carbon Dioxide 18.0 mmol/L (22-30); Creatinine 1 0.63 mg/dL (0.52-1.04); EST GLOMERULAR FILTRATION RATE 101.5 ML/MIN; Glucose 250.0 mg/dL (74-106); Potassium 4.2 mmol/L (3.5-5.1); SGOT/AST 50.0 U/L (14-36); SGPT/ALT 25.0 U/L (0-35); Total Protein 7.0 g/dL (6.3-8.2)
--- NOTE | 2025-07-20 17:28 | XRAY ---
Indication: Pain, vomiting, diarrhea. Multiple contiguous axial images obtained through the abdomen and pelvis without contrast. Comparison: March 15, 2023 Lung bases remain clear. Heart remains enlarged with incidental small right infrahilar calcified node. Noncontrasted stomach and bowel loops appear nonobstructed. Again minimal sigmoid diverticulosis without diverticulitis. Interval appendectomy and cholecystectomy. Urinary bladder demonstrates new tiny intraluminal air either iatrogenic from recent catheterization versus gas-forming infection. Again 20 cm fatty hepatomegaly and hysterectomy. No free fluid/air. Remaining liver, pancreas, spleen, adrenal glands, kidneys, ureters, and bladder are unremarkable for noncontrast exam. Again minimal aortic calcifications without AAA. Osseous structures intact again with mild degenerative changes throughout spine and grade 1 anterolisthesis L5 on S1. Stable moderate-sized left supraumbilical fatty ventral hernia. Impression: 1. New urinary bladder air bubble either iatrogenic versus gas-forming infection. 2. Chronic findings including cardiomegaly, fatty hepatomegaly, sigmoid diverticulosis, arteriosclerotic disease, degenerative spondylosis with grade 1 L5 listhesis, and fatty ventral hernia. 3. Remaining CT abdomen/pelvis without contrast exam is negative.
[2025-07-20 17:33] LABS: INFLUENZA A NEGATIVE (NEGATIVE); INFLUENZA B NEGATIVE (NEGATIVE); RESPIRATORY SYNCTIAL VIRUS NEGATIVE (NEGATIVE); SARS-CoV-2 Xpert Express NEGATIVE (NEGATIVE)
[2025-07-20 19:00] LABS: Glucose, Urine 100 mg/dL (Negative); Protein,Urine Dip Negative (Negative); RBC 0-2 /HPF (0-5); WBC 0-2 /HPF (0-5)
[2025-07-20] MEDS ORDERED: Levofloxacin 500 MG Tablet ONE (19:10)
[2025-07-20] MEDS: Levofloxacin 500 MG Tablet PO ONE (19:11)
[2025-07-20 19:32] VITALS: BP 127/87; PULSE 120; RESP 21; O2SAT 97
== END 2025-07-20 19:55 | disposition home or self-care (01) ==
LOC: ED 15:27
DX: D72.829 Elevated white blood cell count, unspecified (principal); R11.2 Nausea with vomiting, unspecified; N30.80 Other cystitis without hematuria; E11.9 Type 2 diabetes mellitus without complications; I10 Essential (primary) hypertension; Z79.84 Long term (current) use of oral hypoglycemic drugs; Z79.4 Long term (current) use of insulin; Z79.899 Other long term (current) drug therapy